=== PATIENT | female | born 1945 | race Caucasian/White ===

== ENCOUNTER → 2017-12-09 12:18 | Outpatient (CLI) | payer MEDICARE, SELFPAY ==
[2017-12-09 12:22] LABS: Bacteria Urine None Seen
[2017-12-09 13:00] LABS: Appearance Urine UA CLOUDY; Bilirubin Urine UA NEGATIVE (NEGATIVE); Color Urine UA RED; Glucose Urine UA NEGATIVE (Negative); Ketones Urine UA NEGATIVE (NEGATIVE); Leukocyte Esterase Urine UA 1+ (NEGATIVE); Nitrite Urine UA NEGATIVE (NEGATIVE); Occult Blood Urine UA 3+ (Negative); Protein Urine UA 2+ (Negative); Urobilinogen Urine UA 0.2 E.U./dL (0.2); pH Urine UA 6.5 (4.5-8.0)
[2017-12-09 13:13] LABS: RBC Urine >100/HPF (0-5/HPF); WBC Urine 5-10/HPF (0-5/HPF)
[2017-12-09 13:14] LABS: Culture Indicated Urine Specimen Cultured
== END ==
PROVIDERS: PCP Internal Medicine; Visit Provider Internal Medicine
DX: R31.9 Hematuria, unspecified (principal)
CPT/HCPCS: 81001; 87086

== ENCOUNTER → 2017-12-23 09:17 | Outpatient (CLI) | payer MEDICARE, SELFPAY ==
--- NOTE | 2017-12-23 | DI.MG.S_ITS ---
BILATERAL DIGITAL SCREENING MAMMOGRAM 3D/2D WITH CAD: 12/23/2017 CLINICAL: Routine screening. Comparison is made to exams dated: 07/08/2015 mammogram, 06/20/2012 mammogram, and 10/20/2010 mammogram - [facility]. There are scattered fibroglandular elements in both breasts. Current study was also evaluated with a Computer Aided Detection (CAD) system. No significant masses, calcifications, or other findings are seen in either breast. There has been no significant interval change. IMPRESSION: NEGATIVE There is no mammographic evidence of malignancy. A 1 year screening mammogram is recommended. This exam was interpreted at Station ID: [id number]. NOTE: For mammograms, a report in lay terms will be sent to the patient. Approximately 15% of breast malignancies will not be visualized mammographically. In the management of a palpable breast mass, a negative mammogram must not discourage biopsy of a clinically suspicious lesion. Electronically Signed By: Anjum louis/luc:12/23/2017 11:39:30 letter sent: Normal Exam ACR BI-RADS Category 1: Negative 3341F
== END ==
PROVIDERS: Family Provider Internal Medicine; PCP Internal Medicine; Visit Provider Internal Medicine
DX: Z12.31 Encounter for screening mammogram for malignant neoplasm of breast (principal)
CPT/HCPCS: 77063; 77067

== ENCOUNTER → 2018-01-15 10:04 | Outpatient (CLI) | payer MEDICARE, SELFPAY | PROVIDERS: Family Provider Internal Medicine; PCP Internal Medicine; Visit Provider Family Medicine | DX: R31.9 Hematuria, unspecified (principal) | CPT/HCPCS: 87086 ==

== ENCOUNTER → 2018-01-15 10:25 | Outpatient (CLI) | payer MEDICARE, SELFPAY ==
[2018-01-15 10:30] LABS: Bacteria Urine None Seen; WBC Urine None Seen (0-5/HPF)
[2018-01-15 10:55] LABS: Appearance Urine UA CLEAR; Bilirubin Urine UA NEGATIVE (NEGATIVE); Color Urine UA YELLOW; Glucose Urine UA NEGATIVE (Normal); Ketones Urine UA NEGATIVE (NEGATIVE); Leukocyte Esterase Urine UA NEGATIVE (NEGATIVE); Nitrite Urine UA Negative (Negative); Occult Blood Urine UA 1+ (Negative); Protein Urine UA NEGATIVE (Negative); Urobilinogen Urine UA 0.2 E.U./dL (0.2); pH Urine UA 7.5 (4.5-8.0)
[2018-01-15 11:04] LABS: Culture Indicated Urine Cult Not Indicated; RBC Urine 1-5/HPF (0-5/HPF)
== END ==
PROVIDERS: Family Provider Internal Medicine; PCP Internal Medicine; Visit Provider Family Medicine
DX: R31.9 Hematuria, unspecified (principal)
CPT/HCPCS: 81001; 87086

== ENCOUNTER → 2018-02-03 11:27 | Outpatient (CLI) | payer MEDICARE, SELFPAY ==
[2018-02-03 12:55] LABS: BUN Creatinine Ratio 23.3 (6-22); Blood Urea Nitrogen 21 mg/dL (7-17); Estimated Glomerular Filt Rate > 60.0 mL/min (>60)
[2018-02-03 19:40] LABS: Hepatitis B Surface Antigen NEGATIVE s/c (NEGATIVE)
[2018-02-03 19:54] LABS: Hep C Virus Ab w/Reflex Quant NEGATIVE s/c (NEGATIVE)
== END ==
PROVIDERS: Family Provider Internal Medicine; PCP Internal Medicine; Visit Provider Physician Assistant
DX: R94.5 Abnormal results of liver function studies (principal); R31.0 Gross hematuria
CPT/HCPCS: 36415; 82565; 84520; 86803; 87340

== ENCOUNTER → 2018-02-07 13:36 | Outpatient (CLI) | payer MEDICARE, SELFPAY ==
--- NOTE | 2018-02-07 | DI.CT.S_ITS ---
PROCEDURE: CT ABDOMEN PELVIS WO/W CON INDICATIONS: GROSS HEMATURIA TECHNIQUE: Optional 5 mm thick noncontrast images acquired from the diaphragm to the symphysis pubis. After the administration of intravenous contrast, 5 mm thick images acquired from the diaphragm to the symphysis pubis after a 10-minute delay. 2 mm thick coronal and sagittal reformats were then performed of the kidneys and ureters. For radiation dose reduction, the following was used: automated exposure control, adjustment of mA and/or kV according to patient size. COMPARISON: [facility], CT, ABDOMEN/PELVIS WITH CONTRAST, 08/11/2013, 14:11. FINDINGS: Image quality: Excellent. Lung bases: Lung bases are clear. Heart size is normal. Urinary system: There are two smooth walled mural-based filling defects in the left renal pelvis (se 3 im 63 and 61). There is smooth walled narrowing in the proximal right renal collecting system (se 5 im 74-75). Remaining proximal ureters in the mid ureters are patent. The distal ureters do not opacify and cannot be evaluated. There are no solid renal masses. There is a punctate right renal parenchymal calcification. Grossly the bladder is normal although CT urogram cannot exclude bladder malignancy or abnormality. Other solid organs: Liver is normal in size and enhancement. Gallbladder is radiographically normal. Biliary system is non dilated. Pancreas enhances normally. Spleen is normal in size and enhancement. No adrenal nodules. Peritoneum and bowel: Bowel loops demonstrate normal wall thickness and caliber. No free fluid or air. Nodes and vessels: No retroperitoneal or mesenteric adenopathy by size criteria. Aorta and inferior vena cava are normal in size. Abdominal wall: No ventral hernias. Pelvis: No pathologic free pelvic fluid. No inguinal hernias or adenopathy. Uterus is present. Bones: No suspicious bony lesions. No vertebral body compression fractures. IMPRESSION: There are two mural based smooth filling defects in the left renal collecting system and smooth margined narrowing in the proximal right ureter all which are indeterminate. The mid ureters are patent. The distal ureters do not opacify and cannot be evaluated. Dictated by: Anjum Garza M.D. on 02/07/2018 at 15:05 Approved by: Anjum Garza M.D. on 02/07/2018 at 15:13
== END ==
PROVIDERS: Family Provider Internal Medicine; PCP Internal Medicine; Visit Provider Physician Assistant
DX: R31.0 Gross hematuria (principal)
CPT/HCPCS: 74178; Q9967

== ENCOUNTER → 2018-08-11 14:02 | Outpatient (CLI) | payer MEDICARE, SELFPAY | PROVIDERS: Family Provider Internal Medicine; PCP Internal Medicine; Visit Provider Internal Medicine | DX: Z79.01 Long term (current) use of anticoagulants (principal) | CPT/HCPCS: 36415; 85610 ==

== ENCOUNTER 2018-11-10 14:00 | Day surgery (SDC) | payer MEDICARE, SELFPAY ==
[2018-11-10] VITALS (7 sets, daily range): BP systolic 115–152; BP diastolic 74–92; PULSE 57–91; RESP 14–18; TEMP 36.8–36.9; O2SAT 96–98
--- NOTE | 2018-11-10 | PATH_ITS ---
[facility] Accession Number: [id number] . 01 Material submitted: . rectum - RECTAL POLYP . 02 Diagnosis: Biopsy, Rectal Polyp: Tubular adenoma involving all biopsy fragments. MRV/11/14/2018 . 02 Electronically signed: . Gabriel Wiggins MD, Pathologist NPI- [id number] . 01 Gross description: . RECTAL POLYP: Received in formalin are multiple fragment(s) of clements, soft tissue measuring 0.6 x 0.4 x 0.2 cm in aggregate submitted entirely in 1 cassette(s) /CKI /CKI . 02 Pathologist provided ICD-10: D12.8 . 02 CPT . 508005 Performed at: 01 [facility] [address] [id number] MD Apolinar Jean Baptiste MD Phone: [phone] Performed at: 02 [facility] [address] [place], [place] [id number] MD Eliana Norris MD Phone: [phone]
[2018-11-10] MEDS: SODIUM CHLORIDE 0.9% 1,000 ML 100 ML IV (14:34)
--- NOTE | 2018-11-10 14:48 | PM.PREOP ---
Pre-operative Note Interval Note History & Physical reviewed/Exam performed by Physician: Yes Changes to H&P: No H&P completed within 30 days and has changed as indicated here:: Pt took the Pradaxa an extra day so is at higher bleeding risk, we discussed options of holding off versus being cautious and accepting a higher bleeding risk which she chose. We may defer biopsies of non-urgent looking polyps or abort early if running into trouble.
[2018-11-10] MEDS: MIDAZOLAM 5 MG/5 ML VIAL IV (15:05)
[2018-11-10] MEDS: fentaNYL 250 MCG/5 ML INJ IV (15:05)
--- NOTE | 2018-11-11 09:21 | P.OP.ENDO_ITS ---
Operative Date/Time/Diagnoses Date of procedure: 11/10/18 Time of procedure: 15:46 Pre-op diagnosis: History of polyps Post-op diagnosis: same Procedure & Clinicians Study performed: Surveillance Colonoscopy Same procedure as scheduled: Yes (with biopsy) Indications: History of polyps Surgeon: Dior Bangura Procedure Notes SCOAP/Timeout: 14:52 Procedure in detail: After obtaining informed consent, the patient was brought to the GI suite and placed in the left lateral decubitus position on the examination table. After placement of appropriate monitors, the patient was given incremental doses of Versed and Fentanyl until an appropriate level of sedation was achieved. A time out was held per SCOAP protocol. A digital rectal examination was performed and did not reveal any masses or obstructing lesions. The colonoscope was gently passed into the patient's anus and the entire colon navigated to the level of the cecum with moderate difficulty due to spasm and tortuous sigmoid with moderate to severe diverti culosis. Prep was adequate. Once in the cecum, the scope was slowly withdrawn being sure to go before and beyond all mucosal folds and prominences as able to get a thorough examination. A <1cm rectal polyp (around 15cm from anal verge) was removed with a hot snare. Other findings include diverticulosis. At the level of the rectal vault, the scope was retroflexed and the internal anal canal was examined. The scope was straightened and air aspirated from the colon. The instrument was removed from the patient's body and the procedure was concluded. The patient was allowed to awaken from sedation without difficulty and taken to the post-anesthesia care unit in good condition. Scope withdrawal time: 21 min Sedation minutes: 48 Findings: diverticulosis and polyp (rectal polyp, <1cm) Specimen(s): none sent (rectal polyp) Complications: none Impression: 1. Diverticulosis- moderate to severe 2. Rectal polyp Recommendations: Colonscopy in 5 years (pending pathology) and High fiber diet Follow up: as needed Disposition: PACU
== END 2018-11-10 16:48 | disposition home or self-care (01) ==
PROVIDERS: PCP Internal Medicine; Visit Provider Surgery
PROC: 0DJD8ZZ Inspection of Lower Intestinal Tract, Via Natural or Artificial Opening Endoscopic (ICD-10-PCS; CPT 45378; principal; 2018-11-10 15:00)
DX: Z86.010 Personal history of colon polyps (principal); Z79.01 Long term (current) use of anticoagulants; I10 Essential (primary) hypertension; Z86.711 Personal history of pulmonary embolism; I87.2 Venous insufficiency (chronic) (peripheral); Z87.891 Personal history of nicotine dependence; D12.8 Benign neoplasm of rectum; K57.30 Diverticulosis of large intestine without perforation or abscess without bleeding
CPT/HCPCS: 45385; 88305; 99152; 99153; J2250; J3010

== ENCOUNTER → 2018-11-14 09:42 | Outpatient (CLI) | payer MEDICARE, SELFPAY ==
[2018-11-14 10:12] LABS: Add Manual Diff / Slide Review NO; Basophils Absolute Auto 0 /uL (0-100); Basophils Percent Auto 0.9 % (0-2); Eosinophils Absolute Auto 100 /uL (0-450); Eosinophils Percent Auto 1.5 % (2-4); Hematocrit 41.2 % (36-46); Hemoglobin 13.9 g/dL (12.0-16.0); Lymphocytes Absolute Auto 800 /uL (1100-4500); Lymphocytes Percent Auto 20.7 % (25-40); Mean Corpuscular HGB Conc 33.6 % (30-36); Mean Corpuscular Hemoglobin 32.2 PG (26-34); Mean Corpuscular Volume 95.7 fL (80-100); Monocytes Absolute Auto 500 /uL (0-900); Monocytes Percent Auto 13.3 % (3-14); Neutrophils Absolute Auto 2400 /uL (1500-7000); Neutrophils Percent Auto 63.6 % (50-75); Platelet Count 213 X10^3/uL (150-400); Red Cell Distribution Width 13.4 % (11.6-14.8); White Blood Cell Count 3.7 X10^3/uL (4.5-11.0)
[2018-11-14 10:17] LABS: INR 1.9 (0.9-1.3); Prothrombin Time 22.1 SECONDS (10.1-12.7)
[2018-11-14 15:48] LABS: Alanine Aminotransferase 40 IU/L (9-52); Albumin 4.5 g/dL (3.5-5.0); Albumin Globulin Ratio 1.4 (1.0-2.8); Alkaline Phosphatase 69 U/L (38-126); Aspartate Aminotransferase 57 IU/L (14-36); Bilirubin Total 0.2 mg/dL (0.2-1.3); Bilirubin Unconjugated 0.2 mg/dL (0.0-1.1); Blood Urea Nitrogen 20 mg/dL (7-17); Calcium 9.4 mg/dL (8.4-10.2); Carbon Dioxide 25 mmol/L (22-32); Chloride 104 mmol/L (98-107); Cholesterol 193 mg/dL (140-199); Estimated Glomerular Filt Rate > 60.0 mL/min (>60); Globulin 3.2 g/dL (1.7-4.1); Glucose 115 mg/dL (80-110); HDL Cholesterol 71 mg/dL (40-60); HEMOLYSIS < 15 (0-50); LDL Cholesterol Calculated 106 mg/dL (<100); Potassium 5.1 mmol/L (3.4-5.1); Sodium 139 mmol/L (137-145); Total Protein 7.7 g/dL (6.3-8.2); Triglycerides 79 mg/dL (35-150)
== END ==
PROVIDERS: PCP Internal Medicine; Visit Provider Internal Medicine
DX: D68.59 Other primary thrombophilia (principal); E78.2 Mixed hyperlipidemia; I10 Essential (primary) hypertension; Z79.01 Long term (current) use of anticoagulants
CPT/HCPCS: 36415; 80053; 80061; 80076; 85025; 85610

== ENCOUNTER → 2018-12-17 10:55 | Outpatient (CLI) | payer MEDICARE, SELFPAY ==
[2018-12-17 11:45] LABS: Bilirubin Urine UA NEGATIVE (NEGATIVE); Color Urine UA Red; Glucose Urine UA NEGATIVE (Negative); Ketones Urine UA NEGATIVE (NEGATIVE); Leukocyte Esterase Urine UA 2+ (NEGATIVE); Nitrite Urine UA POSITIVE (Negative); Occult Blood Urine UA 3+ (Negative); Protein Urine UA 3+ (Negative); Urobilinogen Urine UA 0.2 E.U./dL (0.2)
[2018-12-17 11:46] LABS: Appearance Urine UA Turbid
[2018-12-17 12:17] LABS: Bacteria Urine Moderate (10-30); RBC Urine 30-100/HPF (0-5/HPF); WBC Urine 10-30/HPF (0-5/HPF)
[2018-12-17 12:18] LABS: Culture Indicated Urine Specimen Cultured
== END ==
PROVIDERS: Family Provider Internal Medicine; PCP Internal Medicine; Visit Provider Family Medicine
DX: R31.9 Hematuria, unspecified (principal)
CPT/HCPCS: 81001; 87077; 87086; 87186

== ENCOUNTER → 2019-08-08 10:32 | Outpatient (CLI) | payer MEDICARE, SELFPAY ==
[2019-08-08 12:02] LABS: Appearance Urine UA SL CLOUDY; Bilirubin Urine UA NEGATIVE (NEGATIVE); Color Urine UA RED; Glucose Urine UA NEGATIVE (Negative); Ketones Urine UA NEGATIVE (NEGATIVE); Leukocyte Esterase Urine UA 1+ (NEGATIVE); Nitrite Urine UA NEGATIVE (Negative); Occult Blood Urine UA 3+ (Negative); Protein Urine UA 1+ (Negative); Urobilinogen Urine UA 0.2 E.U./dL (0.2)
[2019-08-08 12:05] LABS: pH Urine UA 8.5 (4.5-8.0)
[2019-08-08 12:12] LABS: Bacteria Urine Few (2-10); Culture Indicated Urine Specimen Cultured; RBC Urine >100/HPF (0-5/HPF); WBC Urine 1-5/HPF (0-5/HPF)
== END ==
PROVIDERS: PCP Internal Medicine; Visit Provider Internal Medicine
DX: R39.89 Other symptoms and signs involving the genitourinary system (principal)
CPT/HCPCS: 81001; 87077; 87086; 87186

== ENCOUNTER → 2019-08-11 09:56 | Outpatient (CLI) | payer MEDICARE, SELFPAY ==
[2019-08-11 10:33] LABS: Add Manual Diff / Slide Review NO; Basophils Absolute Auto 0 /uL (0-100); Basophils Percent Auto 0.5 % (0-2); Eosinophils Absolute Auto 300 /uL (0-450); Eosinophils Percent Auto 3.6 % (2-4); Hematocrit 38.2 % (36-46); Lymphocytes Absolute Auto 600 /uL (1100-4500); Lymphocytes Percent Auto 8.1 % (25-40); Mean Corpuscular HGB Conc 33.9 % (30-36); Mean Corpuscular Hemoglobin 32.3 PG (26-34); Mean Corpuscular Volume 95.2 fL (80-100); Monocytes Absolute Auto 900 /uL (0-900); Neutrophils Absolute Auto 5400 /uL (1500-7000); Neutrophils Percent Auto 75.8 % (50-75); Platelet Count 203 X10^3/uL (150-400); Red Blood Cell Count 4.01 X10^6/uL (4.0-5.2); Red Cell Distribution Width 13.3 % (11.6-14.8); White Blood Cell Count 7.2 X10^3/uL (4.5-11.0)
[2019-08-11 10:55] LABS: Alanine Aminotransferase 28 IU/L (<35); Albumin 4.2 g/dL (3.5-5.0); Albumin Globulin Ratio 1.2 (1.0-2.8); Alkaline Phosphatase 71 U/L (38-126); Aspartate Aminotransferase 33 IU/L (14-36); BUN Creatinine Ratio 25.7 (6-22); Bilirubin Total 0.8 mg/dL (0.2-1.3); Blood Urea Nitrogen 18 mg/dL (7-17); Calcium 9.5 mg/dL (8.4-10.2); Carbon Dioxide 28 mmol/L (22-32); Chloride 105 mmol/L (98-107); Cholesterol 175 mg/dL (140-199); Estimated Glomerular Filt Rate > 60.0 mL/min (>60); Globulin 3.5 g/dL (1.7-4.1); Glucose 109 mg/dL (80-110); HDL Cholesterol 49 mg/dL (40-60); HEMOLYSIS < 15 (0-50); LDL Cholesterol Calculated 106 mg/dL (<100); Magnesium 2.1 mg/dL (1.6-2.3); Sodium 141 mmol/L (137-145); Total Protein 7.7 g/dL (6.3-8.2); Triglycerides 99 mg/dL (35-150)
== END ==
PROVIDERS: PCP Internal Medicine; Visit Provider Internal Medicine
DX: E78.2 Mixed hyperlipidemia (principal); I10 Essential (primary) hypertension; R94.5 Abnormal results of liver function studies; Z79.01 Long term (current) use of anticoagulants
CPT/HCPCS: 36415; 80053; 80061; 83735; 85025

== ENCOUNTER → 2020-05-24 11:27 | Outpatient (CLI) | payer MEDICARE, SELFPAY ==
--- NOTE | 2020-05-24 11:29 | DI.MG.S_ITS ---
BILATERAL DIGITAL SCREENING MAMMOGRAM 3D/2D WITH CAD: 05/24/2020 CLINICAL: Routine screening. Comparison is made to exams dated: 12/23/2017 mammogram, 07/08/2015 mammogram, and 06/20/2012 mammogram - [facility]. The tissue of both breasts is heterogeneously dense. This may lower the sensitivity of mammography. Current study was also evaluated with a Computer Aided Detection (CAD) system. No significant masses, calcifications, or other findings are seen in either breast. There has been no significant interval change. IMPRESSION: NEGATIVE There is no mammographic evidence of malignancy. A 1 year screening mammogram is recommended. This exam was interpreted at Station ID: [id number]. NOTE: For mammograms, a report in lay terms will be sent to the patient. Approximately 15% of breast malignancies will not be visualized mammographically. In the management of a palpable breast mass, a negative mammogram must not discourage biopsy of a clinically suspicious lesion. Electronically Signed By: Apolinar zambrano/luc:05/24/2020 16:46:39 letter sent: Normal Exam ACR BI-RADS Category 1: Negative 3341F
== END ==
PROVIDERS: PCP Internal Medicine; Referring Provider Internal Medicine; Visit Provider Internal Medicine
DX: Z12.31 Encounter for screening mammogram for malignant neoplasm of breast (principal)
CPT/HCPCS: 77063; 77067

== ENCOUNTER → 2020-06-04 11:35 | Outpatient (CLI) | payer MEDICARE, SELFPAY ==
[2020-06-04 12:23] LABS: Add Manual Diff / Slide Review NO; Basophils Absolute Auto 0 /uL (0-100); Basophils Percent Auto 0.3 % (0-2); Eosinophils Absolute Auto 100 /uL (0-450); Eosinophils Percent Auto 1.2 % (2-4); Hematocrit 44.4 % (36-46); Hemoglobin 14.5 g/dL (12.0-16.0); Lymphocytes Absolute Auto 1000 /uL (1100-4500); Lymphocytes Percent Auto 19.4 % (25-40); Mean Corpuscular HGB Conc 32.6 % (30-36); Mean Corpuscular Hemoglobin 31.6 PG (26-34); Monocytes Absolute Auto 500 /uL (0-900); Monocytes Percent Auto 10.6 % (3-14); Neutrophils Absolute Auto 3400 /uL (1500-7000); Neutrophils Percent Auto 68.5 % (50-75); Platelet Count 228 X10^3/uL (150-400); Red Blood Cell Count 4.58 X10^6/uL (4.0-5.2); Red Cell Distribution Width 13.5 % (11.6-14.8); White Blood Cell Count 4.9 X10^3/uL (4.5-11.0)
[2020-06-04 13:01] LABS: HEMOLYSIS < 15 (0-50); Potassium 4.8 mmol/L (3.4-5.1)
[2020-06-04 13:02] LABS: Alanine Aminotransferase 31 IU/L (<35); Albumin 4.4 g/dL (3.5-5.0); Albumin Globulin Ratio 1.2 (1.0-2.8); Alkaline Phosphatase 80 U/L (38-126); Amylase 89 U/L (30-110); Aspartate Aminotransferase 48 IU/L (14-36); BUN Creatinine Ratio 23.9 (6-22); Bilirubin Total 0.4 mg/dL (0.2-1.3); Blood Urea Nitrogen 17 mg/dL (7-17); Calcium 9.6 mg/dL (8.4-10.2); Carbon Dioxide 29 mmol/L (22-32); Chloride 104 mmol/L (98-107); Estimated Glomerular Filt Rate > 60.0 mL/min (>60); Globulin 3.8 g/dL (1.7-4.1); Glucose 105 mg/dL (80-110); Lipase 147 U/L (23-300); Sodium 138 mmol/L (137-145); Total Protein 8.2 g/dL (6.3-8.2)
== END ==
PROVIDERS: PCP Internal Medicine; Referring Provider Internal Medicine; Visit Provider Internal Medicine
DX: R10.9 Unspecified abdominal pain (principal)
CPT/HCPCS: 36415; 80053; 82150; 83690; 85025

== ENCOUNTER → 2020-06-06 12:07 | Outpatient (CLI) | payer MEDICARE, SELFPAY ==
--- NOTE | 2020-06-06 12:10 | DI.US.S_ITS ---
PROCEDURE: US ABDOMEN COMPLETE INDICATIONS: EPIGASTRIC PAIN, PRESSURE TECHNIQUE: Real-time scanning was performed of the abdominal and retroperitoneal organs, with image documentation. COMPARISON: [facility], CT, CT ABDOMEN PELVIS WO/W CON, 02/07/2018, 13:40. FINDINGS: Liver: Liver is normal in size and homogeneous in echotexture. The main portal vein is patent and measures 1.5 cm. Gallbladder: No findings of gallstones or sludge are seen. The gallbladder wall is not thickened, measuring 3 mm or less. No specific pericholecystic fluid is seen. The sonographic Molina sign is negative. Biliary ducts: Intrahepatic bile ducts are non-dilated. Extrahepatic bile duct caliber measures 6-7 mm. Normal is 6-7 mm or less in diameter, or 10 mm or less post-cholecystectomy. Pancreas: Visualized portions of the pancreas are sonographically normal. Spleen: Spleen is normal in size and homogeneous in echotexture. Kidneys: Kidneys are normal in size and echotexture. Right kidney measures 9.7 cm long; left kidney measures 10.9 cm long. No hydronephrosis or nephrolithiasis. No solid masses. Aorta: Visualized aorta is normal in caliber at less than 3 cm. Iliacs: Proximal common iliac arteries are normal in caliber at less than 2.5 cm. IVC: Intrahepatic inferior vena cava is patent. Miscellaneous: No free abdominal fluid. IMPRESSION: Normal ultrasound. The gallbladder demonstrates a normal sonographic appearance. No biliary dilatation is seen. Dictated by: Alen Templeton M.D. on 06/06/2020 at 12:20 Approved by: Alen Templeton M.D. on 06/06/2020 at 12:38
== END ==
PROVIDERS: PCP Internal Medicine; Referring Provider Internal Medicine; Visit Provider Internal Medicine
DX: R10.13 Epigastric pain (principal)
CPT/HCPCS: 76700

== ENCOUNTER → 2020-09-16 10:21 | Outpatient (CLI) | payer MEDICARE, SELFPAY ==
[2020-09-16 13:49] LABS: COVID19 -Nasal RAPID Negative (Negative)
== END ==
PROVIDERS: PCP Internal Medicine; Visit Provider Nurse Practitioner
DX: Z01.812 Encounter for preprocedural laboratory examination (principal); Z20.822 Contact with and (suspected) exposure to COVID-19
CPT/HCPCS: 87635; C9803

== ENCOUNTER 2020-09-18 12:27 | Day surgery (SDC) | payer MEDICARE, SELFPAY ==
[2020-09-18] VITALS (7 sets, daily range): BP systolic 115–145; BP diastolic 69–78; PULSE 59–68; RESP 12–18; TEMP 36.2–36.8; O2SAT 92–97; BMI 21.1
--- NOTE | 2020-09-18 | PATH_ITS ---
[facility] Accession Number: [id number] . 01 Material submitted: . PART A: gastrointestinal site - GASTRIC BIOPSY, BODY, ANTRUM PART B: gastrointestinal site - GASTRIC POLYP . 01 Clinical history: . EGD A: R/O H.PYLORI . 02 Diagnosis: A. Stomach, Biopsies: Gastric antral and body mucosa with mild chronic inflammation. Negative for Helicobacter organisms by immunohistochemistry. Negative for intestinal metaplasia. Negative for dysplasia or malignancy. . B. Gastric Polyp, Biopsy: Fundic gland polyp. No evidence of Helicobacter organisms on H/E stain. Negative for intestinal metaplasia. Negative for dysplasia and malignancy. V 09/24/2020 1320 Local . 02 Electronically signed: . Doyle Tesfaye MD, PhD, Pathologist NPI- [id number] . 01 Gross description: . Part A: GASTRIC BIOPSY, BODY, ANTRUM: Received in formalin are multiple fragment(s) of clements, soft tissue measuring 0.1 x 0.1 x 0.1 cm to 0.3 x 0.2 x 0.2 cm submitted entirely in 1 cassette(s) Part B: GASTRIC POLYP: Received in formalin is 1 fragment(s) of clements, soft tissue measuring 0.3 x 0.2 x 0.2 cm submitted entirely in 1 cassette(s) /CORBIN 09/21/2020 0125 Local . 02 Microscopic: . A. An immunohistochemical stain was performed to evaluate for Helicobacter organisms and is negative. The control stain showed appropriate reactivity. . * This test was developed and its performance characteristics determined by [facility]. It has not been cleared or approved by the U.S. Food and Drug Administration. The FDA has determined that such clearance or approval is not necessary. This test is used for clinical purposes. It should not be regarded as investigational or for research. . 02 Pathologist provided ICD-10: K29.70, K31.7 . 02 CPT . 414895, 075558, R06414 Performed at: 01 [facility] [address] [id number] MD Apolinar Jean Baptiste MD Phone: [phone] Performed at: [address] [place] [id number] [place], [place] [id number] MD Eliana Norris MD Phone: [phone]
--- NOTE | 2020-09-18 08:15 | PM.HP.1 ---
History of Present Illness History of Present Illness Date Patient Seen: 09/18/20 Chief complaint: EGD Narrative: 75-year-old female seen at our office on 08/15 2020 for epigastric pain and heartburn. 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 (12/07/12) Mixed hyperlipidemia Osteopenia (01/23/16) Pulmonary embolism Surgical History History of ERCP (2003) History of exploratory laparotomy (2003) Status post breast biopsy (09/14/95) Status post colonoscopy (09/18/13) Status post endoscopy (09/18/13) Family & Social History Family History Brother Type II diabetes mellitus Sister Type II diabetes mellitus Unknown COPD (chronic obstructive pulmonary disease) Mother Hypertension Social History: household members spouse Tobacco & Substance use: Smoking Status Former smoker alcohol intake current Meds Home Medications and Allergies Home Medications Medication Instructions Recorded Confirmed Type Fish Oil (#OMEGA 3) 1,000 mg PO Q DAY #0 11/26/11 09/18/20 History CA PANTOTHENATE/FOLIC ACID/VIT 1 tab PO QDAY #0 03/09/13 09/18/20 History (MULTIVITAMIN) coenzyme Q10 100 mg capsule 100 mg PO DAILY 09/06/18 09/18/20 History Glucosamine Chondroitin 3 tab PO DAILY 08/17/19 09/18/20 History apple cider vinegar 500 mg tablet See Rx Instructions PO DAILY tab 08/17/19 09/18/20 History biotin 5 mg capsule 5 mg PO DAILY 08/17/19 09/18/20 History simvastatin 40 mg tablet See Rx Instructions .ROUTE 10/09/19 09/18/20 Rx .COMPLEX #90 tablet mupirocin 2 % topical ointment 1 applictn TOP BID #15 gram 03/26/20 09/18/20 Rx lisinopril 40 mg tablet 40 mg PO DAILY #90 tab 02/02/21 03/03/21 Rx warfarin 5 mg tablet 5 mg PO DAILY #90 tab 09/02/20 09/18/20 Rx enoxaparin [Lovenox] 60 mg SUBCUT BID 09/18/20 09/18/20 History omeprazole 40 mg PO BEDTIME 09/18/20 09/18/20 History warfarin 4 mg PO QDAY 09/18/20 09/18/20 History Allergies Allergy/AdvReac Type Severity Reaction Status Date / Time hydrocodone [HYDROCODONE] AdvReac Mild NAUSEA Verified 09/18/20 13:00 oxycodone [OXYCODONE] AdvReac Mild NAUSEA Verified 09/18/20 12:59 Exam Narrative Exam Narrative: General: Patient is well developed, not in apparent distress Cardiovascular: Regular rate and rhythm, no murmurs, rubs, or gallops; no evidence of edema; no palpable abdominal aortic aneurysm Gastrointestinal: Normoactive bowel sounds, soft, nontender, nondistended, no rebound tenderness, no hepatosplenomegaly, no evidence of hernia Assessment & Plan Assessment & Plan narrative: 75-year-old female with a history of epigastric pain and heartburn here for further evaluation by means of EGD. Warfarin held for the procedure Regarding the procedure(s), the risks and potential complications, benefits, and alternatives (including not doing the procedure) were discussed with the patient. The risks include but are not limited to bleeding, splenic injury, infection, perforation which may require surgical intervention, missed lesions, and adverse reactions to sedative medicines. After a question and answer period, the patient agreed to proceed with the procedure(s) and gives informed consent.
[2020-09-18] MEDS: SODIUM CHLORIDE 0.9% 1,000 ML 70 ML IV (13:23)
--- NOTE | 2020-09-18 13:27 | PM.OP.ENDO ---
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 The procedure was discussed in detail with the patient. The potential risks and complications including infection, bleeding, missed lesions, perforation, need for surgery in case of perforation, prolonged hospital stay, and were explained. A brief question and answer period was allotted and once all questions were answered, informed consent was obtained. The patient was brought back to the procedure room and placed on standard monitoring. The patient?s vital signs were monitored continuously throughout the entire procedure. Prior to starting, a timeout was performed to confirm the patient?s identity, allergies, medications, and procedure. Procedure in detail The patient was placed in left lateral decubitus position and a bite block was inserted. The tip of the upper endoscope was placed into the mouth and advanced without difficulty under direct visualization into the esophagus. Esophagus: The entire esophagus appeared normal Stomach: There was note of a 2 cm hiatal hernia on retroflexion in the stomach. There were multiple sessile and pedunculated polyps in the gastric body measuring 2 mm up to 8 mm. 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 Biopsy was also performed in the body and antrum to rule out H pylori Duodenum: The visualized duodenum up to the 2nd portion of the duodenum appeared normal The patient tolerated the procedure well and will be brought back to the recovery area to be discharged once criteria are met. The total physician intraservice time was 12 minutes. Complications There were no complications and estimated blood loss was minimal. Recommendations: Resume previous diet Continue outPx medications Resume warfarin later today; continue Lovenox bridge as previously ordered Follow up pathology results We will schedule you for a follow-up with Dr. Lubin ([facility]) An emergency contact number was given to the patient for any complications related to the procedure
[2020-09-18] MEDS: fentaNYL 100 MCG/2 ML INJ IV (13:33)
[2020-09-18] MEDS: MIDAZOLAM 5 MG/5 ML VIAL IV (13:33)
[2020-09-18] MEDS: LIDOCAINE 4% SOLN 50 ML 20 ML TOP (13:34)
[2020-09-18] MEDS: MIDAZOLAM 2 MG/2 ML VIAL IV (13:47)
--- NOTE | 2020-09-18 14:43 | SUR.PHASEII ---
1415 Pt ready to go, called, available for pepper picker. Pt denied pain, vinnie soft strong swallow and voice. Pt left when ready and left in stable condition.
--- NOTE | 2020-09-18 14:46 | SUR.PHASEII ---
Late entry: Dr. Crooks's lovenox/Coumadin d/c instructions provided to pt with d/c instructions.
== END 2020-09-18 14:35 | disposition home or self-care (01) ==
PROVIDERS: PCP Internal Medicine; Referring Provider Internal Medicine Gastroenterology; Visit Provider Internal Medicine Gastroenterology
PROC: 0DJ08ZZ Inspection of Upper Intestinal Tract, Via Natural or Artificial Opening Endoscopic (ICD-10-PCS; CPT 43235; principal; 2020-09-18 13:30)
DX: K29.50 Unspecified chronic gastritis without bleeding (principal); I10 Essential (primary) hypertension; E78.5 Hyperlipidemia, unspecified; Z79.01 Long term (current) use of anticoagulants; Z86.718 Personal history of other venous thrombosis and embolism; K44.9 Diaphragmatic hernia without obstruction or gangrene; K31.7 Polyp of stomach and duodenum
CPT/HCPCS: 43239; J2250; J3010

== ENCOUNTER → 2020-09-30 09:52 | Outpatient (CLI) | payer MEDICARE, SELFPAY ==
[2020-09-30 10:22] LABS: Add Manual Diff / Slide Review NO; Basophils Absolute Auto 0 /uL (0-100); Basophils Percent Auto 0.8 % (0-2); Eosinophils Absolute Auto 100 /uL (0-450); Eosinophils Percent Auto 1.5 % (2-4); Hematocrit 41.6 % (36-46); Hemoglobin 13.9 g/dL (12.0-16.0); Lymphocytes Absolute Auto 700 /uL (1100-4500); Lymphocytes Percent Auto 17.6 % (25-40); Mean Corpuscular HGB Conc 33.3 % (30-36); Mean Corpuscular Hemoglobin 32.4 PG (26-34); Mean Corpuscular Volume 97.2 fL (80-100); Monocytes Absolute Auto 500 /uL (0-900); Monocytes Percent Auto 11.6 % (3-14); Neutrophils Absolute Auto 2900 /uL (1500-7000); Neutrophils Percent Auto 68.5 % (50-75); Platelet Count 235 X10^3/uL (150-400); Red Blood Cell Count 4.28 X10^6/uL (4.0-5.2); Red Cell Distribution Width 13.6 % (11.6-14.8); White Blood Cell Count 4.2 X10^3/uL (4.5-11.0)
[2020-09-30 10:54] LABS: Alanine Aminotransferase 74 IU/L (<35); Albumin 4.3 g/dL (3.5-5.0); Albumin Globulin Ratio 1.3 (1.0-2.8); Alkaline Phosphatase 87 U/L (38-126); Aspartate Aminotransferase 46 IU/L (14-36); BUN Creatinine Ratio 26.7 (6-22); Bilirubin Total 0.4 mg/dL (0.2-1.3); Blood Urea Nitrogen 20 mg/dL (7-17); Calcium 9.4 mg/dL (8.4-10.2); Carbon Dioxide 28 mmol/L (22-32); Chloride 103 mmol/L (98-107); Cholesterol 220 mg/dL (140-199); Estimated Glomerular Filt Rate > 60.0 mL/min (>60); Globulin 3.4 g/dL (1.7-4.1); Glucose 125 mg/dL (80-110); HDL Cholesterol 72 mg/dL (40-60); HEMOLYSIS < 15 (0-50); LDL Cholesterol Calculated 133 mg/dL (<100); Potassium 4.3 mmol/L (3.4-5.1); Sodium 138 mmol/L (137-145); Total Protein 7.7 g/dL (6.3-8.2); Triglycerides 73 mg/dL (35-150)
== END ==
PROVIDERS: PCP Internal Medicine; Referring Provider Internal Medicine; Visit Provider Internal Medicine
DX: E78.2 Mixed hyperlipidemia (principal); I10 Essential (primary) hypertension; R94.5 Abnormal results of liver function studies; Z79.01 Long term (current) use of anticoagulants
CPT/HCPCS: 36415; 80053; 80061; 85025

== ENCOUNTER → 2020-10-14 10:00 | Outpatient (CLI) | payer MEDICARE, SELFPAY ==
--- NOTE | 2020-10-14 10:20 | DI.CT.S_ITS ---
PROCEDURE: CT ABDOMEN PELVIS W CON INDICATIONS: Generalized abdominal pain,Diverticulosis of intes TECHNIQUE: After the administration of oral and intravenous contrast, 5 mm thick sections acquired from the diaphragms to the symphysis. 5 mm thick coronal and sagittal reformats were performed. For radiation dose reduction, the following was used: automated exposure control, adjustment of mA and/or kV according to patient size. COMPARISON: [facility], CT, ABDOMEN/PELVIS WITH CONTRAST, 08/11/2013, 14:11. FINDINGS: Image quality: Excellent. ABDOMEN: Lung bases: Lung bases are clear. Heart size is normal. Solid organs: Liver is normal in size and enhancement. Gallbladder is unremarkable. Biliary system is non-dilated. Pancreas enhances normally. Spleen is normal in size and enhancement. No adrenal nodules. Kidneys are normal in size and enhancement, without hydronephrosis. Peritoneum and bowel: Stomach, small bowel, and colon loops are normal in caliber and wall thickness. No free fluid or air. Sigmoid diverticulosis. Nodes and vessels: No retroperitoneal or mesenteric adenopathy. Aorta and inferior vena cava are normal in caliber. Miscellaneous: No ventral hernias. PELVIS: Genitourinary: Bladder wall thickness is normal. Miscellaneous: No inguinal hernias or adenopathy. Bones: No suspicious bony lesions. No acute vertebral body compression fractures. Scoliotic curvature with convexity to the right centered at L2. IMPRESSION: 1. Diverticulosis without evidence of diverticulitis. 2. No evidence of acute abdominal process. Dictated by: Basilio Ferguson M.D. on 10/14/2020 at 11:23 Approved by: Basilio Ferguson M.D. on 10/14/2020 at 11:49
== END ==
PROVIDERS: PCP Internal Medicine; Referring Provider Internal Medicine; Visit Provider Student in an Organized Health Care Education/Training Program
DX: K57.30 Diverticulosis of large intestine without perforation or abscess without bleeding; R10.84 Generalized abdominal pain
CPT/HCPCS: 74177; Q9967

== ENCOUNTER → 2020-10-17 14:28 | Outpatient (CLI) | payer MEDICARE, SELFPAY ==
[2020-10-17 14:46] LABS: Bacteria Urine None Seen
[2020-10-17 16:18] LABS: Appearance Urine UA CLOUDY; Bilirubin Urine UA NEGATIVE (NEGATIVE); Color Urine UA RED; Glucose Urine UA NEGATIVE (Negative); Ketones Urine UA NEGATIVE (NEGATIVE); Leukocyte Esterase Urine UA TRACE (NEGATIVE); Nitrite Urine UA NEGATIVE (Negative); Occult Blood Urine UA 3+ (Negative); Protein Urine UA 2+ (Negative); Urobilinogen Urine UA 0.2 E.U./dL (0.2); pH Urine UA 5.5 (4.5-8.0)
[2020-10-17 16:19] LABS: Culture Indicated Urine Specimen Cultured; RBC Urine >100/HPF (0-5/HPF); WBC Urine 10-30/HPF (0-5/HPF)
== END ==
PROVIDERS: PCP Internal Medicine; Referring Provider Internal Medicine; Visit Provider Internal Medicine
DX: R31.9 Hematuria, unspecified (principal)
CPT/HCPCS: 81001; 87077; 87086; 87186

== ENCOUNTER → 2020-12-31 10:36 | Outpatient (CLI) | payer MEDICARE, SELFPAY | PROVIDERS: PCP Internal Medicine; Visit Provider Physician Assistant | DX: N34.3 Urethral syndrome, unspecified (principal) | CPT/HCPCS: 87086 ==

== ENCOUNTER → 2020-12-31 11:39 | Outpatient (CLI) | payer MEDICARE, SELFPAY ==
[2020-12-31 11:59] LABS: INR 2.6 (0.9-1.3); Prothrombin Time 29.3 SECONDS (10.1-12.7)
== END ==
PROVIDERS: PCP Internal Medicine; Referring Provider Physician Assistant; Visit Provider Physician Assistant
DX: Z79.01 Long term (current) use of anticoagulants (principal); N34.3 Urethral syndrome, unspecified
CPT/HCPCS: 36415; 85610; 87077; 87086; 87186

== ENCOUNTER → 2021-01-07 10:55 | Outpatient (CLI) | payer MEDICARE, SELFPAY ==
[2021-01-07 12:03] LABS: INR 2.6 (0.9-1.3); Prothrombin Time 29.8 SECONDS (10.1-12.7)
== END ==
PROVIDERS: PCP Internal Medicine; Referring Provider Internal Medicine; Visit Provider Internal Medicine
DX: Z79.01 Long term (current) use of anticoagulants (principal); Z86.711 Personal history of pulmonary embolism
CPT/HCPCS: 36415; 85610

== ENCOUNTER → 2021-02-04 11:29 | Outpatient (CLI) | payer MEDICARE, SELFPAY ==
[2021-02-04 13:20] LABS: INR 2.5 (0.9-1.3); Prothrombin Time 28.8 SECONDS (10.1-12.7)
== END ==
PROVIDERS: PCP Internal Medicine; Referring Provider Internal Medicine; Visit Provider Internal Medicine
DX: Z79.01 Long term (current) use of anticoagulants (principal); Z86.711 Personal history of pulmonary embolism
CPT/HCPCS: 36415; 85610

== ENCOUNTER → 2021-02-16 14:00 | Outpatient (CLI) | payer MEDICARE, SELFPAY | PROVIDERS: PCP Internal Medicine; Visit Provider Student in an Organized Health Care Education/Training Program | DX: R35.0 Frequency of micturition (principal); R39.15 Urgency of urination | CPT/HCPCS: 87086 ==

== ENCOUNTER → 2021-02-19 11:13 | Outpatient (CLI) | payer MEDICARE, SELFPAY ==
[2021-02-19 12:50] LABS: INR 2.9 (0.9-1.3); Prothrombin Time 34.4 SECONDS (10.1-12.7)
== END ==
PROVIDERS: PCP Internal Medicine; Referring Provider Internal Medicine; Visit Provider Internal Medicine
DX: Z79.01 Long term (current) use of anticoagulants (principal)
CPT/HCPCS: 36415; 85610

== ENCOUNTER → 2021-02-25 10:37 | Outpatient (CLI) | payer MEDICARE, SELFPAY ==
[2021-02-25 11:59] LABS: INR 2.6 (0.9-1.3); Prothrombin Time 30.4 SECONDS (10.1-12.7)
== END ==
PROVIDERS: PCP Internal Medicine; Referring Provider Internal Medicine; Visit Provider Internal Medicine
DX: Z79.01 Long term (current) use of anticoagulants (principal)
CPT/HCPCS: 36415; 85610

== ENCOUNTER → 2021-03-04 11:34 | Outpatient (CLI) | payer MEDICARE, SELFPAY | PROVIDERS: PCP Internal Medicine; Visit Provider Physician Assistant | DX: N39.0 Urinary tract infection, site not specified (principal) | CPT/HCPCS: 87077; 87086; 87147; 87186 ==

== ENCOUNTER → 2021-03-13 13:43 | Outpatient (CLI) | payer MEDICARE, SELFPAY ==
[2021-03-13 14:30] LABS: INR 2.3 (0.9-1.3); Prothrombin Time 25.6 SECONDS (10.1-12.7)
== END ==
PROVIDERS: Student in an Organized Health Care Education/Training Program; PCP Internal Medicine; Referring Provider Internal Medicine; Visit Provider Internal Medicine
DX: Z79.01 Long term (current) use of anticoagulants (principal)
CPT/HCPCS: 36415; 85610

== ENCOUNTER → 2021-04-04 11:04 | Outpatient (CLI) | payer MEDICARE, SELFPAY ==
[2021-04-04 13:02] LABS: INR 2.4 (0.9-1.3); Prothrombin Time 27.8 SECONDS (10.1-12.7)
== END ==
PROVIDERS: PCP Internal Medicine; Referring Provider Internal Medicine; Visit Provider Internal Medicine
DX: Z79.01 Long term (current) use of anticoagulants (principal)
CPT/HCPCS: 36415; 85610

== ENCOUNTER → 2021-04-18 10:43 | Outpatient (CLI) | payer MEDICARE, SELFPAY ==
[2021-04-18 12:09] LABS: INR 2.5 (0.9-1.3); Prothrombin Time 28.5 SECONDS (10.1-12.7)
== END ==
PROVIDERS: PCP Internal Medicine; Referring Provider Internal Medicine; Visit Provider Internal Medicine
DX: Z79.01 Long term (current) use of anticoagulants (principal)
CPT/HCPCS: 36415; 85610; 86769

== ENCOUNTER → 2021-05-05 11:13 | Outpatient (CLI) | payer MEDICARE, SELFPAY ==
[2021-05-05 12:03] LABS: INR 2.4 (0.9-1.3); Prothrombin Time 27.3 SECONDS (10.1-12.7)
== END ==
PROVIDERS: PCP Internal Medicine; Referring Provider Internal Medicine; Visit Provider Internal Medicine
DX: Z79.01 Long term (current) use of anticoagulants (principal)
CPT/HCPCS: 36415; 85610

== ENCOUNTER → 2021-05-20 10:43 | Outpatient (CLI) | payer MEDICARE, SELFPAY ==
[2021-05-20 12:15] LABS: Prothrombin Time 34.5 SECONDS (10.1-12.7)
== END ==
PROVIDERS: PCP Internal Medicine; Referring Provider Internal Medicine; Visit Provider Internal Medicine
DX: Z79.01 Long term (current) use of anticoagulants (principal)
CPT/HCPCS: 36415; 85610

== ENCOUNTER → 2021-06-03 10:25 | Outpatient (CLI) | payer MEDICARE, SELFPAY ==
[2021-06-03 11:23] LABS: INR 2.9 (0.9-1.3); Prothrombin Time 34.1 SECONDS (10.1-12.7)
== END ==
PROVIDERS: PCP Internal Medicine; Referring Provider Internal Medicine; Visit Provider Internal Medicine
DX: Z79.01 Long term (current) use of anticoagulants (principal)
CPT/HCPCS: 36415; 85610

== ENCOUNTER → 2021-06-10 10:50 | Outpatient (CLI) | payer MEDICARE, SELFPAY ==
--- NOTE | 2021-06-10 10:51 | DI.RAD.S_ITS ---
PROCEDURE: XR ANKLE RT MIN 3V INDICATIONS: lateral ankle pain TECHNIQUE: 3 views of the ankle were acquired. COMPARISON: None. FINDINGS: Bones: There is a mildly displaced oblique fracture through the right distal fibula/lateral malleolus. There may be a small avulsion fracture fragment extending off the distal, anterior margin of the right tibia seen best on the lateral projection. Ankle mortise is normally aligned. No suspicious bony lesions. Degenerative changes of the tibiotalar joint. Small plantar calcaneal enthesophyte. Soft tissues: No tibiotalar joint effusion. Achilles tendon appears normal. Soft tissue swelling of the right ankle most pronounced over the lateral malleolus. IMPRESSION: 1. Mildly displaced right lateral malleolar fracture. 2. Possible acute avulsion fracture fragment extending off the anterior, distal margin of the right tibia. Recommend correlation with clinical examination. 3. Osteoarthrosis of the tibiotalar joint. 4. Small plantar calcaneal spur. Dictated by: Daniel Alexander M.D. on 06/10/2021 at 11:08 Approved by: Daniel Alexander M.D. on 06/10/2021 at 11:11
== END ==
PROVIDERS: PCP Internal Medicine; Referring Provider Physician Assistant; Visit Provider Physician Assistant
DX: S82.61XA Displaced fracture of lateral malleolus of right fibula, initial encounter for closed fracture (principal); M19.071 Primary osteoarthritis, right ankle and foot; M77.31 Calcaneal spur, right foot; M25.571 Pain in right ankle and joints of right foot
CPT/HCPCS: 73610

== ENCOUNTER → 2021-06-18 11:59 | Outpatient (CLI) | payer MEDICARE, SELFPAY ==
--- NOTE | 2021-06-18 | DI.MG.S_ITS ---
BILATERAL DIGITAL SCREENING MAMMOGRAM 3D/2D WITH CAD: 06/18/2021 CLINICAL: Routine screening. Comparison is made to exams dated: 05/24/2020 mammogram, 12/23/2017 mammogram, and 07/08/2015 mammogram - [facility]. The tissue of both breasts is heterogeneously dense. This may lower the sensitivity of mammography. Current study was also evaluated with a Computer Aided Detection (CAD) system. No significant masses, calcifications, or other findings are seen in either breast. There has been no significant interval change. IMPRESSION: NEGATIVE There is no mammographic evidence of malignancy. A 1 year screening mammogram is recommended. This exam was interpreted at Station ID: [id number]. NOTE: For mammograms, a report in lay terms will be sent to the patient. Approximately 15% of breast malignancies will not be visualized mammographically. In the management of a palpable breast mass, a negative mammogram must not discourage biopsy of a clinically suspicious lesion. Electronically Signed By: Kane whitt/luc:06/18/2021 12:39:04 letter sent: Normal Exam ACR BI-RADS Category 1: Negative 3341F
== END ==
PROVIDERS: PCP Internal Medicine; Referring Provider Internal Medicine; Visit Provider Internal Medicine
DX: Z12.31 Encounter for screening mammogram for malignant neoplasm of breast (principal)
CPT/HCPCS: 77063; 77067

== ENCOUNTER → 2021-06-19 10:29 | Outpatient (CLI) | payer MEDICARE, SELFPAY ==
[2021-06-19 12:42] LABS: INR 3.3 (0.9-1.3); Prothrombin Time 38.7 SECONDS (10.1-12.7)
== END ==
PROVIDERS: PCP Internal Medicine; Referring Provider Internal Medicine; Visit Provider Internal Medicine
DX: Z79.01 Long term (current) use of anticoagulants (principal)
CPT/HCPCS: 36415; 85610

== ENCOUNTER → 2021-07-03 10:42 | Outpatient (CLI) | payer MEDICARE, SELFPAY ==
[2021-07-03 11:47] LABS: INR 2.7 (0.9-1.3); Prothrombin Time 31.9 SECONDS (10.1-12.7)
== END ==
PROVIDERS: PCP Internal Medicine; Referring Provider Internal Medicine; Visit Provider Internal Medicine
DX: Z79.01 Long term (current) use of anticoagulants (principal)
CPT/HCPCS: 36415; 85610

== ENCOUNTER → 2021-07-25 14:17 | Outpatient (CLI) | payer MEDICARE, SELFPAY ==
[2021-07-25 14:59] LABS: INR 3.3 (0.9-1.3); Prothrombin Time 38.4 SECONDS (10.1-12.7)
== END ==
PROVIDERS: PCP Internal Medicine; Referring Provider Internal Medicine; Visit Provider Internal Medicine
DX: Z79.01 Long term (current) use of anticoagulants (principal)
CPT/HCPCS: 36415; 85610

== ENCOUNTER → 2021-08-06 14:23 | Outpatient (CLI) | payer MEDICARE, SELFPAY ==
[2021-08-06 15:41] LABS: INR 3.2 (0.9-1.3); Prothrombin Time 37.7 SECONDS (10.1-12.7)
== END ==
PROVIDERS: PCP Internal Medicine; Referring Provider Internal Medicine; Visit Provider Internal Medicine
DX: Z79.01 Long term (current) use of anticoagulants (principal)
CPT/HCPCS: 36415; 85610

== ENCOUNTER → 2021-08-20 11:21 | Outpatient (CLI) | payer MEDICARE, SELFPAY ==
[2021-08-20 12:29] LABS: Prothrombin Time 35.1 SECONDS (10.1-12.7)
== END ==
PROVIDERS: PCP Internal Medicine; Referring Provider Internal Medicine; Visit Provider Internal Medicine
DX: Z79.01 Long term (current) use of anticoagulants (principal)
CPT/HCPCS: 36415; 85610

== ENCOUNTER → 2021-09-03 11:09 | Outpatient (CLI) | payer MEDICARE, SELFPAY ==
[2021-09-03 12:50] LABS: INR 2.6 (0.9-1.3)
== END ==
PROVIDERS: PCP Internal Medicine; Referring Provider Internal Medicine; Visit Provider Internal Medicine
DX: Z79.01 Long term (current) use of anticoagulants (principal)
CPT/HCPCS: 36415; 85610

== ENCOUNTER → 2021-09-17 11:48 | Outpatient (CLI) | payer MEDICARE, SELFPAY ==
[2021-09-17 12:41] LABS: INR 2.9 (0.9-1.3); Prothrombin Time 34.2 SECONDS (10.1-12.7)
== END ==
PROVIDERS: PCP Internal Medicine; Referring Provider Internal Medicine; Visit Provider Internal Medicine
DX: Z79.01 Long term (current) use of anticoagulants (principal)
CPT/HCPCS: 36415; 85610

== ENCOUNTER → 2021-10-08 09:52 | Outpatient (CLI) | payer MEDICARE, SELFPAY ==
[2021-10-08 11:30] LABS: Add Manual Diff / Slide Review NO; Basophils Absolute Auto 0 /uL (0-100); Basophils Percent Auto 1.1 % (0-2); Eosinophils Absolute Auto 100 /uL (0-450); Eosinophils Percent Auto 1.4 % (2-4); Hematocrit 41.3 % (36-46); Hemoglobin 13.8 g/dL (12.0-16.0); Lymphocytes Absolute Auto 700 /uL (1100-4500); Lymphocytes Percent Auto 17.8 % (25-40); Mean Corpuscular HGB Conc 33.3 % (30-36); Mean Corpuscular Hemoglobin 31.7 PG (26-34); Monocytes Absolute Auto 400 /uL (0-900); Monocytes Percent Auto 11.6 % (3-14); Neutrophils Absolute Auto 2600 /uL (1500-7000); Neutrophils Percent Auto 68.1 % (50-75); Platelet Count 205 X10^3/uL (150-400); Red Blood Cell Count 4.35 X10^6/uL (4.0-5.2); Red Cell Distribution Width 13.7 % (11.6-14.8); White Blood Cell Count 3.8 X10^3/uL (4.5-11.0)
[2021-10-08 11:36] LABS: INR 3.1 (0.9-1.3)
[2021-10-08 11:59] LABS: Alanine Aminotransferase 29 IU/L (<35); Albumin 4.1 g/dL (3.5-5.0); Albumin Globulin Ratio 1.3 (1.0-2.8); Alkaline Phosphatase 69 U/L (38-126); Aspartate Aminotransferase 37 IU/L (14-36); BUN Creatinine Ratio 21.3 (6-22); Bilirubin Total 0.7 mg/dL (0.2-1.3); Blood Urea Nitrogen 16 mg/dL (7-17); Calcium 9.3 mg/dL (8.4-10.2); Carbon Dioxide 27 mmol/L (22-32); Chloride 105 mmol/L (98-107); Cholesterol 204 mg/dL (140-199); Estimated Glomerular Filt Rate > 60.0 mL/min (>60); Globulin 3.2 g/dL (1.7-4.1); Glucose 117 mg/dL (80-110); HDL Cholesterol 62 mg/dL (40-60); HEMOLYSIS < 15 (0-50); LDL Cholesterol Calculated 123 mg/dL (<100); Potassium 4.4 mmol/L (3.4-5.1); Sodium 137 mmol/L (137-145); Total Protein 7.3 g/dL (6.3-8.2); Triglycerides 93 mg/dL (35-150)
== END ==
PROVIDERS: PCP Internal Medicine; Referring Provider Internal Medicine; Visit Provider Internal Medicine
DX: Z79.01 Long term (current) use of anticoagulants (principal); E78.2 Mixed hyperlipidemia; D68.59 Other primary thrombophilia; I10 Essential (primary) hypertension; R94.5 Abnormal results of liver function studies
CPT/HCPCS: 36415; 80053; 80061; 85025; 85610

== ENCOUNTER → 2021-10-21 11:29 | Outpatient (CLI) | payer MEDICARE, SELFPAY ==
[2021-10-21 13:25] LABS: INR 2.9 (0.9-1.3); Prothrombin Time 33.6 SECONDS (10.1-12.7)
== END ==
PROVIDERS: PCP Internal Medicine; Referring Provider Internal Medicine; Visit Provider Internal Medicine
DX: Z79.01 Long term (current) use of anticoagulants (principal)
CPT/HCPCS: 36415; 85610

== ENCOUNTER → 2021-11-12 10:23 | Outpatient (CLI) | payer MEDICARE, SELFPAY ==
[2021-11-12 11:21] LABS: INR 3.3 (0.9-1.3); Prothrombin Time 37.9 SECONDS (10.1-12.7)
== END ==
PROVIDERS: PCP Internal Medicine; Referring Provider Internal Medicine; Visit Provider Internal Medicine
DX: Z79.01 Long term (current) use of anticoagulants (principal)
CPT/HCPCS: 36415; 85610

== ENCOUNTER → 2021-11-26 10:45 | Outpatient (CLI) | payer MEDICARE, SELFPAY ==
[2021-11-26 11:33] LABS: INR 3.5 (0.9-1.3); Prothrombin Time 39.8 SECONDS (10.1-12.7)
== END ==
PROVIDERS: PCP Internal Medicine; Referring Provider Internal Medicine; Visit Provider Internal Medicine
DX: Z79.01 Long term (current) use of anticoagulants (principal)
CPT/HCPCS: 36415; 85610

== ENCOUNTER → 2021-12-10 10:31 | Outpatient (CLI) | payer MEDICARE, SELFPAY | PROVIDERS: PCP Internal Medicine; Referring Provider Internal Medicine; Visit Provider Internal Medicine | DX: D68.59 Other primary thrombophilia (principal); Z79.01 Long term (current) use of anticoagulants; Z86.711 Personal history of pulmonary embolism | CPT/HCPCS: 36415; 85610 ==

== ENCOUNTER → 2021-12-16 10:00 | Outpatient (CLI) | payer MEDICARE, SELFPAY ==
[2021-12-16 10:50] LABS: Appearance Urine UA SL CLOUDY; Bilirubin Urine UA NEGATIVE (NEGATIVE); Color Urine UA YELLOW; Glucose Urine UA NEGATIVE (Negative); Ketones Urine UA NEGATIVE (NEGATIVE); Leukocyte Esterase Urine UA 2+ (NEGATIVE); Nitrite Urine UA NEGATIVE (Negative); Occult Blood Urine UA 3+ (Negative); Protein Urine UA NEGATIVE (Negative); Specific Gravity Urine UA <=1.005 (1.000-1.035); Urobilinogen Urine UA 0.2 E.U./dL (0.2)
[2021-12-16 10:58] LABS: Bacteria Urine None Seen; Culture Indicated Urine Specimen Cultured; RBC Urine >100/HPF (0-5/HPF); Squamous Epithelial Cell Urine 0-1 /HPF (0-5/HPF); WBC Urine 30-100/HPF (0-5/HPF)
== END ==
PROVIDERS: PCP Internal Medicine; Referring Provider Internal Medicine; Visit Provider Internal Medicine
DX: R30.9 Painful micturition, unspecified (principal)
CPT/HCPCS: 81001; 87077; 87086; 87186

== ENCOUNTER → 2021-12-24 10:42 | Outpatient (CLI) | payer MEDICARE, SELFPAY ==
[2021-12-24 11:41] LABS: INR 3.7 (0.9-1.3); Prothrombin Time 42.9 SECONDS (10.1-12.7)
== END ==
PROVIDERS: PCP Internal Medicine; Referring Provider Internal Medicine; Visit Provider Internal Medicine
DX: Z79.01 Long term (current) use of anticoagulants (principal)
CPT/HCPCS: 36415; 85610

== ENCOUNTER → 2021-12-31 10:24 | Outpatient (CLI) | payer MEDICARE, SELFPAY ==
[2021-12-31 11:37] LABS: INR 3.5 (0.9-1.3); Prothrombin Time 39.8 SECONDS (10.1-12.7)
== END ==
PROVIDERS: PCP Internal Medicine; Referring Provider Internal Medicine; Visit Provider Internal Medicine
DX: Z79.01 Long term (current) use of anticoagulants (principal)
CPT/HCPCS: 36415; 85610

== ENCOUNTER → 2022-01-12 10:05 | Outpatient (CLI) | payer MEDICARE, SELFPAY ==
[2022-01-12 10:42] LABS: Appearance Urine UA CLEAR; Bilirubin Urine UA NEGATIVE (NEGATIVE); Color Urine UA YELLOW; Glucose Urine UA NEGATIVE (Negative); Ketones Urine UA NEGATIVE (NEGATIVE); Leukocyte Esterase Urine UA TRACE (NEGATIVE); Nitrite Urine UA NEGATIVE (Negative); Occult Blood Urine UA 2+ (Negative); Protein Urine UA NEGATIVE (Negative); Specific Gravity Urine UA <=1.005 (1.000-1.035); Urobilinogen Urine UA 0.2 E.U./dL (0.2)
[2022-01-12 10:44] LABS: pH Urine UA 5.5 (4.5-8.0)
[2022-01-12 10:51] LABS: Bacteria Urine None Seen; Culture Indicated Urine Cult Not Indicated; RBC Urine 5-10/HPF (0-5/HPF); Squamous Epithelial Cell Urine 1-5 /HPF (0-5/HPF); WBC Urine None Seen (0-5/HPF)
[2022-01-12 11:19] LABS: INR 3.6 (0.9-1.3); Prothrombin Time 41.2 SECONDS (10.1-12.7)
== END ==
PROVIDERS: PCP Internal Medicine; Referring Provider Internal Medicine; Visit Provider Internal Medicine
DX: Z79.01 Long term (current) use of anticoagulants (principal); N39.0 Urinary tract infection, site not specified
CPT/HCPCS: 36415; 81001; 85610

== ENCOUNTER → 2022-01-20 10:09 | Outpatient (CLI) | payer MEDICARE, SELFPAY ==
[2022-01-20 10:54] LABS: INR 2.4 (0.9-1.3); Prothrombin Time 27.4 SECONDS (10.1-12.7)
== END ==
PROVIDERS: PCP Internal Medicine; Referring Provider Internal Medicine; Visit Provider Internal Medicine
DX: Z79.01 Long term (current) use of anticoagulants (principal)
CPT/HCPCS: 36415; 85610

== ENCOUNTER 2022-01-21 13:55 | Emergency (ER) | payer MEDICARE, SELFPAY ==
[2022-01-21 13:59] VITALS: BP 188/94; PULSE 72; RESP 16; TEMP 36.2; O2SAT 96; BMI 20.5
--- NOTE | 2022-01-21 15:07 | DI.RAD.S_ITS ---
PROCEDURE: XR HAND RT MIN 3V INDICATIONS: fall TECHNIQUE: 3 views of the hand(s) acquired. COMPARISON: [facility], , HAND 3V LEFT, 09/30/2012, 12:35. FINDINGS: Bones: There is mild osteopenia. No gross acute fracture or dislocation. Osteoarthritic changes are noted throughout right hand and wrist joints. Carpal bones are normally aligned. No suspicious bony lesions. Soft tissues: No suspicious soft tissue calcifications. IMPRESSION: Right hand and wrist joint osteoarthritis. No gross acute fracture or dislocation. No gross soft tissue abnormality. Dictated by: Noé Natarajan M.D. on 01/21/2022 at 16:02 Approved by: Noé Natarajan M.D. on 01/21/2022 at 16:02
--- NOTE | 2022-01-21 17:50 | ED_ITS ---
HPI - Extremity Injury (Upper) <Eliana Stafford [facility] - Last Filed: 01/21/22 19:39> General Chief Complaint: Extremity Injury, Upper Stated Complaint: Fell/ cut right hand on glass table- on thinners Time Seen by Provider: 01/21/22 17:40 Source: patient Mode of arrival: Ambulatory History of Present Illness HPI narrative: This is a 76-year-old female who presents to the emergency department after she had a mechanical fall at home landing on her left hand sustaining a laceration over the lateral aspect of her 5th metacarpal. Patient endorses she is on warfarin, denies taking any pain medication today, states that she has anxiety and fear of needles, and significant pain related to this wound. Patient has full range of motion, denies any weakness, new sensation changes, able to flex and extend her 5th digit without any abnormality. No tenderness over the metacarpals, she denies knowing when her last tetanus was. Patient states that hydrocodone and oxycodone and all narcotic medications make her ill. She endorses taking something for anxiety past but has not been on anything recently. Patient denies any contamination to her wound, states that she fell onto the angelica. Related Data Home Medications Medication Instructions Recorded Confirmed Fish Oil (#OMEGA 3) 1,000 mg PO Q DAY ##0 11/26/11 10/30/21 coenzyme Q10 100 mg capsule 100 mg PO DAILY 09/06/18 10/30/21 Glucosamine Chondroitin 3 tab PO DAILY 08/17/19 10/30/21 apple cider vinegar 500 mg tablet See Rx Instructions PO DAILY 08/17/19 10/30/21 biotin 5 mg capsule 5 mg PO DAILY 08/17/19 10/30/21 Multivitamin 1 packet PO BID 10/10/20 10/30/21 Previous Rx's Medication Instructions Recorded mupirocin 2 % topical ointment 1 applictn topical BID facial 03/26/20 scratch #15 grams triamcinolone acetonide 0.1 % 1 applic topical QID #80 grams 10/10/20 topical cream omeprazole 20 mg capsule,delayed 40 mg PO DAILY #180 caps 08/08/21 release lisinopril 40 mg tablet 40 mg PO DAILY #90 tabs 09/01/21 warfarin 5 mg tablet 5 mg PO DAILY #90 tabs 09/29/21 conjugated estrogens 0.625 mg/gram 0.625 mg vaginal DAILY #30 grams 12/17/21 vaginal cream simvastatin 40 mg tablet See Rx Instructions .Route 12/29/21 .COMPLEX #90 tabs warfarin 4 mg tablet See Rx Instructions .Route 01/01/22 .COMPLEX #180 tabs alprazolam 0.25 mg tablet 0.25 mg PO BEDTIME PRN anxiety #10 01/21/22 tabs mupirocin 2 % topical ointment 1 applic topical BID #15 grams 01/21/22 Allergies Allergy/AdvReac Type Severity Reaction Status Date / Time acetaminophen Allergy Unknown Verified 10/30/21 10:54 [From [facility] with Codeine] codeine Allergy Unknown Verified 10/30/21 10:54 [From [facility] with Codeine] hydrocodone [HYDROCODONE] AdvReac Mild NAUSEA Verified 10/30/21 10:54 oxycodone [OXYCODONE] AdvReac Mild NAUSEA Verified 10/30/21 10:54 Review of Systems <BRE Negron - Last Filed: 01/21/22 19:39> Review of Systems Narrative: General: denies fever, chills Head/Neck: denies headache, neck pain Eyes: denies visual changes, eye pain Cardio: denies chest pain, palpitations Respiratory: denies shortness of breath, cough GI: denies abdominal pain, nausea, vomiting, or diarrhea : denies dysuria, hematuria or flank pain MSK: denies new joint pain, muscle weakness or swelling Skin: denies rash, itching or wound , 1.5 inch laceration to the lateral aspect of her left hand. Neuro: denies numbness, tingling, dizziness Patient History <BRE Negron - Last Filed: 01/21/22 19:39> Medical History Abnormal LFTs Chronic epigastric pain (2003) Chronic venous insufficiency (01/23/16) DVT (deep venous thrombosis) Essential hypertension Fatty infiltration of liver Fracture of distal end of right fibula History of pulmonary embolism (11/02/13) Hypercoagulable state emt intermediate current use of anticoagulant therapy (12/07/12) Mixed hyperlipidemia Osteopenia (01/23/16) Pulmonary embolism Surgical History History of ERCP (2003) History of exploratory laparotomy (2003) Status post breast biopsy (09/14/95) Status post colonoscopy (09/18/13) Status post endoscopy (09/18/13) Family History Brother Type II diabetes mellitus Sister Type II diabetes mellitus Unknown COPD (chronic obstructive pulmonary disease) Mother Hypertension Social History marital status: household members: spouse occupational status: employed Smoking Status: Former smoker alcohol intake: current substance use type: does not use Smoking Status: Former smoker alcohol intake frequency: 0-2 drinks per day Substance Use Type: does not use Exam <BRE Negron - Last Filed: 01/21/22 19:39> Narrative Exam Narrative: Independently reviewed vitals signs and nursing notes. General: Awake, alert, nontoxic, no cardiorespiratory distress, patient is anxious, fearful of needles, tearful, shaking Head/Neck: Atraumatic, neck supple Eyes: EOMI, conjunctiva normal Nose: nares patent, no rhinorrhea Mouth/Throat: moist mucus membranes Cardio: Regular rate and rhythm, no peripheral edema Respiratory: respirations unlabored without wheezing, stridor, or rales. No retractions, hypoxia or tachypnea GI: Abdomen soft, nontender to palpation x4 quadrants, no guarding or rebound tenderness MSK: Moves all extremities, neurovascularly intact, range of motion without deficit Skin: Normal capillary refill, no rash, laceration which appears like an avulsion flap to the lateral aspect of the dorsum of her hand over the 5th metacarpal. No tenderness to metacarpal, no weakness, flexion extension are intact without deficit, cap refills brisk. Bleeding is slightly oozing but controlled with pressure. Neuro: Normal speech and cognition, normal gait Initial Vital Signs Initial Vital Signs: Vital Signs Temperature 97.2 F L 01/21/22 13:59 Pulse Rate 72 01/21/22 13:59 Respiratory Rate 16 01/21/22 13:59 Blood Pressure 188/94 H 01/21/22 13:59 Pulse Oximetry 96 01/21/22 13:59 Oxygen Delivery Method 01/21/22 13:59 <Nila Conner MD - Last Filed: 01/22/22 05:35> Initial Vital Signs Initial Vital Signs: Vital Signs Temperature 97.2 F L 01/21/22 13:59 Pulse Rate 72 01/21/22 13:59 Respiratory Rate 16 01/21/22 13:59 Blood Pressure 188/94 H 01/21/22 13:59 Pulse Oximetry 96 01/21/22 13:59 Oxygen Delivery Method 01/21/22 13:59 Procedures <BRE Negron - Last Filed: 01/21/22 19:39> Laceration Repair Laceration 1: Site: upper extremity and hand Side (If applicable): right Size (cm): 3 Description: flap, irregular and clean Depth: simple, single layer Local Anesthetic: lidocaine 2% and with bicarb Amount of anesthesia used (mL): 4 Pre-repair: wound explored and irrigated extensively Skin layer closed with: nylon Skin layer suture size: 5-0 Number of sutures: 9 Technique: simple, interrupted Course <BRE Negron - Last Filed: 01/21/22 19:39> Orders Ordered: Discontinued Medications Acetaminophen (Acetaminophen 325 Mg Tablet) 975 mg PO NOW ONE Stop: 01/21/22 17:46 Last Admin: 01/21/22 17:57 Dose: 975 mg Documented By: DIEGO Alprazolam (Alprazolam 0.25 Mg Tablet) 0.25 mg PO NOW ONE Stop: 01/21/22 17:50 Last Admin: 01/21/22 17:57 Dose: 0.25 mg Documented By: BS Bacitracin (Bacitracin Oint 0.9 Gm Pckt) 1 applic TOP NOW ONE Stop: 01/21/22 19:26 Last Admin: 01/21/22 19:34 Dose: 1 applic Documented By: CTS Diphtheria/Tetanus/Acell Pertussis (Tet,Diph,Pertuss(Acell),Vac/Pf 0.5 Ml Syringe) 0.5 ml IM .ONCE ONE Stop: 01/21/22 17:47 Last Admin: 01/21/22 17:57 Dose: 0.5 ml Documented By: BS Vital Signs Vital signs: Vital Signs - 8 hr 01/21/22 13:59 Temperature 97.2 F L Pulse Rate 72 Respiratory Rate 16 Blood Pressure 188/94 H Pulse Oximetry 96 Oxygen Delivery Method Room Air <Nila Conner MD - Last Filed: 01/22/22 05:35> Orders Ordered: Discontinued Medications Acetaminophen (Acetaminophen 325 Mg Tablet) 975 mg PO NOW ONE Stop: 01/21/22 17:46 Last Admin: 01/21/22 17:57 Dose: 975 mg Documented By: BS Alprazolam (Alprazolam 0.25 Mg Tablet) 0.25 mg PO NOW ONE Stop: 01/21/22 17:50 Last Admin: 01/21/22 17:57 Dose: 0.25 mg Documented By: BS Bacitracin (Bacitracin Oint 0.9 Gm Pckt) 1 applic TOP NOW ONE Stop: 01/21/22 19:26 Last Admin: 01/21/22 19:34 Dose: 1 applic Documented By: CTS Diphtheria/Tetanus/Acell Pertussis (Tet,Diph,Pertuss(Acell),Vac/Pf 0.5 Ml Syringe) 0.5 ml IM .ONCE ONE Stop: 01/21/22 17:47 Last Admin: 01/21/22 17:57 Dose: 0.5 ml Documented By: BS Vital Signs Vital signs: Vital Signs - 8 hr 01/21/22 13:59 Temperature 97.2 F L Pulse Rate 72 Respiratory Rate 16 Blood Pressure 188/94 H Pulse Oximetry 96 Oxygen Delivery Method Room Air MDM - Extremity Injury (Upper) <Eliana Stafford [facility] - Last Filed: 01/21/22 19:39> Imaging Data Extremity x-ray #1: Radiologist's Impression: PROCEDURE:? XR HAND RT MIN 3V ? INDICATIONS:? fall ? TECHNIQUE:? 3 views of the hand(s) acquired.? ? COMPARISON:? [facility], , HAND 3V LEFT, 09/30/2012, 12:35. ? FINDINGS:? ? Bones:? There is mild osteopenia.? No gross acute fracture or dislocation.? Osteoarthritic changes are noted throughout right hand and wrist joints.? Carpal bones are normally aligned.? No suspicious bony lesions.? ? Soft tissues:? No suspicious soft tissue calcifications.? ? ? IMPRESSION:? Right hand and wrist joint osteoarthritis.? No gross acute fracture or dislocation.? No gross soft tissue abnormality. ? ? Dictated by: Noé Natarajan M.D. on 01/21/2022 at 16:02 ? ? Approved by: Noé Natarajan M.D. on 01/21/2022 at 16:02 ? [facility] Narrative Medical decision making narrative: This is a 76-year-old female presents to the emergency department after mechanical fall earlier today where she tripped and fell down on her right cutting the lateral aspect of her right hand over her 5th MCP joint. X-rays negative for fracture or gross soft tissue abnormality, shows right hand and wrist joint osteoarthritis. Patient is chronically anticoagulated on Coumadin for history pulmonary emboli. Her INR goal is 2.5-3. She did not hit her head, has a laceration on a lateral aspect of her right hand, it was oozing blood but would stop with pressure. She received irrigation with normal saline, there was no foreign debris, it was not contaminated, her tetanus was updated, she was given Xanax for anxiety and Tylenol for pain and she reports allergy in incompatibility to all other pain medicines. This worked quite well for her anxiety she has significant fear of needles and was tearful and tremulous with fear prior to starting procedure. She required nine sutures for this flap laceration, does not appear to have damaged any deep tissues or structures, she has full range of motion of her right hand without any deficit, brisk cap refill, flexion extension is intact at each joint or had any deficit. No tenderness over her 5th metacarpal. She understands to have her sutures removed in 10 days id she was given a prescription for mupirocin ointment and Xanax for anxiety/pain. Encouraged her to follow-up with her PCP as needed, and to return to the emergency department for any worsening of this wound or concern for infection. Patient is appropriate and amenable to discharge home. Vital signs are stable on repeat examination is unremarkable. Patient has been informed of results. Patient has been given strict return to ER precautions for any new or worsening symptoms. Patient understands to follow up closely with outpatient providers as instructed. Patient understands plan and agrees to discharge home. All questions and concerns answered at this time. Discharge Plan Departure Patient Disposition: Home Clinical Impression: Laceration, Chronic anticoagulation Instructions: DI for Laceration Repair Activity Restrictions/Additional Instructions: *You have been diagnosed with laceration over your 5th MCP joint. Please keep this clean, you may wash gentle cleanser morning and night but do scrub. Please a gentle pressure dressing to prevent this from bleeding the next 24 hours. you received nine sutures today. Keep them covered at all times while your sutures are in, please have them removed in 10 days. Please use a topical antibiotic ointment to cover this wound for the next five days to help prevent infection. Stay hydrated, take Tylenol as needed for pain, you may take an anxiety medication if needed. Please follow-up with your primary doctor if you have any worsening or come back to the emergency department if you develop any redness or streaking up your arm, limited range of motion or fever. Your x-ray shows osteoarthritis of your right hand and wrist but no fracture or other concerning abnormality. Please use ice, elevation, and other modalities as needed for pain control. *What to do: *Please continue to take your regular medications as directed. [ x] New medication prescriptions sent to your pharmacy: [ [facility]] [ ] New medication written as a paper prescription [ ] No new medications given *Please follow up with your primary care provider in 2-3 days, call for an appointment. Let them know you were seen in the Emergency Department and that we asked that you be seen for follow-up. We will electronically transmit a record of today's note if your PCP is in our system *If you do not have a primary care provider please contact [phone] to establish care with one of the [facility] primary care providers. *Return to Emergency Department if you should have any new, worsening or concerning symptoms, such as [fever greater than 101F, chills, worsening pain, persistent vomiting or other bothersome symptoms] Prescriptions: New mupirocin 2 % ointment 1 applic topical BID Qty: 15 0RF alprazolam 0.25 mg tablet 0.25 mg PO BEDTIME PRN (Reason: anxiety) Qty: 10 0RF No Action mupirocin 2 % ointment 1 applictn TOP BID Qty: 15 0RF Fish Oil (#OMEGA 3) 1,000 mg PO Q DAY Qty: 0 omeprazole 20 mg capsule,delayed release(DR/EC) 40 mg PO DAILY Qty: 180 1RF lisinopril 40 mg tablet 40 mg PO DAILY Qty: 90 1RF warfarin 5 mg tablet 5 mg PO DAILY Qty: 90 3RF Rx Instructions: Take 9mg Wednesday and Wednesday and 8mg all other days, or as directed simvastatin 40 mg tablet See Rx Instructions .ROUTE .COMPLEX Qty: 90 3RF Dose Instruction: TAKE 1 TABLET(40 MG) BY MOUTH DAILY AT BEDTIME Rx Instructions: TAKE 1 TABLET(40 MG) BY MOUTH DAILY AT BEDTIME warfarin 4 mg tablet See Rx Instructions .ROUTE .COMPLEX Qty: 180 3RF Rx Instructions: Take 6mg Wednesday and 8mg all other days, or as directed coenzyme Q10 100 mg capsule 100 mg PO DAILY biotin 5 mg capsule 5 mg PO DAILY Glucosamine Chondroitin 3 tab PO DAILY apple cider vinegar 500 mg tablet See Rx Instructions PO DAILY Rx Instructions: 2 TABS IN THE MORNING 2 TAB IN THE EVENING PO daily; Multivitamin 1 packet PO BID triamcinolone acetonide 0.1 % cream 1 applic topical QID Qty: 80 0RF conjugated estrogens 0.625 mg/gram cream 0.625 mg vaginal DAILY Qty: 30 11RF Rx Instructions: Stop med for 5 days per month. Referrals: Arash Garcia MD [Primary Care Provider] - Visit Report Forms: Patient Portal/API <Nila Conner MD - Last Filed: 01/22/22 05:35> Cosign ED Attending Cosignature Attestation: I was immediately available in the department for consultation throughout this patient's visit. I agree with documentation as above. Nila Conner MD
[2022-01-21] MEDS: TET,DIPH,PERTUSS(ACELL),VAC/PF 0.5 ML SYRINGE IM (17:57)
[2022-01-21] MEDS: ALPRAZolam 0.25 MG TABLET PO (17:57)
[2022-01-21] MEDS: ACETAMINOPHEN 325 MG TABLET 975 MG PO (17:57)
[2022-01-21] MEDS: BACITRACIN OINT 0.9 GM PCKT 1 APPLIC TOP (19:34)
== END 2022-01-21 19:37 | disposition home or self-care (01) ==
PROVIDERS: Emergency Provider Nurse Practitioner Critical Care Medicine; PCP Internal Medicine
DX: S61.216A Laceration without foreign body of right little finger without damage to nail, initial encounter (principal); W01.0XXA Fall on same level from slipping, tripping and stumbling without subsequent striking against object, initial encounter; Z79.01 Long term (current) use of anticoagulants; Z23 Encounter for immunization
CPT/HCPCS: 12002; 73130; 90471; 99283; 99284; 90715

== ENCOUNTER → 2022-01-27 09:27 | Outpatient (CLI) | payer MEDICARE, SELFPAY ==
[2022-01-27 10:54] LABS: INR 2.7 (0.9-1.3); Prothrombin Time 30.9 SECONDS (10.1-12.7)
== END ==
PROVIDERS: PCP Internal Medicine; Referring Provider Internal Medicine; Visit Provider Internal Medicine
DX: Z79.01 Long term (current) use of anticoagulants (principal)
CPT/HCPCS: 36415; 85610

== ENCOUNTER → 2022-02-05 10:38 | Outpatient (CLI) | payer MEDICARE, SELFPAY ==
[2022-02-05 11:08] LABS: INR 2.5 (0.9-1.3); Prothrombin Time 28.8 SECONDS (10.1-12.7)
== END ==
PROVIDERS: PCP Internal Medicine; Referring Provider Internal Medicine; Visit Provider Internal Medicine
DX: Z79.01 Long term (current) use of anticoagulants (principal)
CPT/HCPCS: 36415; 85610

== ENCOUNTER → 2022-02-18 10:54 | Outpatient (CLI) | payer MEDICARE, SELFPAY ==
[2022-02-18 12:27] LABS: INR 2.4 (0.9-1.3); Prothrombin Time 26.8 SECONDS (10.1-12.7)
== END ==
PROVIDERS: PCP Internal Medicine; Referring Provider Internal Medicine; Visit Provider Internal Medicine
DX: Z79.01 Long term (current) use of anticoagulants (principal)
CPT/HCPCS: 36415; 85610

== ENCOUNTER → 2022-03-02 11:14 | Outpatient (CLI) | payer MEDICARE, SELFPAY ==
[2022-03-02 13:10] LABS: INR 2.6 (0.9-1.3); Prothrombin Time 30.4 SECONDS (10.1-12.7)
== END ==
PROVIDERS: PCP Internal Medicine; Referring Provider Internal Medicine; Visit Provider Internal Medicine
DX: Z79.01 Long term (current) use of anticoagulants (principal)
CPT/HCPCS: 36415; 85610

== ENCOUNTER → 2022-03-17 10:36 | Outpatient (CLI) | payer MEDICARE, SELFPAY ==
[2022-03-17 11:24] LABS: Prothrombin Time 34.7 SECONDS (10.1-12.7)
== END ==
PROVIDERS: PCP Internal Medicine; Referring Provider Internal Medicine; Visit Provider Internal Medicine
DX: Z79.01 Long term (current) use of anticoagulants (principal)
CPT/HCPCS: 36415; 85610

== ENCOUNTER → 2022-03-31 10:46 | Outpatient (CLI) | payer MEDICARE, SELFPAY ==
[2022-03-31 12:19] LABS: INR 2.9 (0.9-1.3); Prothrombin Time 33.6 SECONDS (10.1-12.7)
== END ==
PROVIDERS: PCP Internal Medicine; Referring Provider Internal Medicine; Visit Provider Internal Medicine
DX: Z79.01 Long term (current) use of anticoagulants (principal); Z86.711 Personal history of pulmonary embolism
CPT/HCPCS: 36415; 85610

== ENCOUNTER → 2022-04-22 10:33 | Outpatient (CLI) | payer MEDICARE, SELFPAY ==
[2022-04-22 12:21] LABS: INR 2.7 (0.9-1.3); Prothrombin Time 31.3 SECONDS (10.1-12.7)
== END ==
PROVIDERS: PCP Internal Medicine; Referring Provider Internal Medicine; Visit Provider Internal Medicine
DX: Z79.01 Long term (current) use of anticoagulants (principal); Z86.711 Personal history of pulmonary embolism
CPT/HCPCS: 36415; 85610

== ENCOUNTER → 2022-05-19 11:18 | Outpatient (CLI) | payer MEDICARE, SELFPAY ==
[2022-05-19 12:50] LABS: INR 2.8 (0.9-1.3); Prothrombin Time 32.6 SECONDS (10.1-12.7)
== END ==
PROVIDERS: PCP Internal Medicine; Referring Provider Internal Medicine; Visit Provider Internal Medicine
DX: Z79.01 Long term (current) use of anticoagulants (principal); Z86.711 Personal history of pulmonary embolism
CPT/HCPCS: 36415; 85610

== ENCOUNTER → 2022-06-17 11:31 | Outpatient (CLI) | payer MEDICARE, SELFPAY ==
[2022-06-17 12:32] LABS: INR 1.8 (0.9-1.3); Prothrombin Time 20.9 SECONDS (10.1-12.7)
== END ==
PROVIDERS: PCP Internal Medicine; Referring Provider Internal Medicine; Visit Provider Internal Medicine
DX: Z79.01 Long term (current) use of anticoagulants (principal); Z86.711 Personal history of pulmonary embolism
CPT/HCPCS: 36415; 85610

== ENCOUNTER → 2022-06-25 10:25 | Outpatient (CLI) | payer MEDICARE, SELFPAY ==
[2022-06-25 11:08] LABS: INR 2.4 (0.9-1.3); Prothrombin Time 27.9 SECONDS (10.1-12.7)
== END ==
PROVIDERS: PCP Internal Medicine; Referring Provider Internal Medicine; Visit Provider Internal Medicine
DX: Z79.01 Long term (current) use of anticoagulants (principal); Z86.711 Personal history of pulmonary embolism
CPT/HCPCS: 36415; 85610

== ENCOUNTER → 2022-07-09 11:10 | Outpatient (CLI) | payer MEDICARE, SELFPAY ==
[2022-07-09 11:46] LABS: INR 2.4 (0.9-1.3); Prothrombin Time 27.5 SECONDS (10.1-12.7)
== END ==
PROVIDERS: PCP Internal Medicine; Referring Provider Internal Medicine; Visit Provider Internal Medicine
DX: Z79.01 Long term (current) use of anticoagulants (principal); Z86.711 Personal history of pulmonary embolism
CPT/HCPCS: 36415; 85610

== ENCOUNTER → 2022-07-23 10:23 | Outpatient (CLI) | payer MEDICARE, SELFPAY ==
[2022-07-23 12:21] LABS: INR 2.6 (0.9-1.3); Prothrombin Time 29.8 SECONDS (10.1-12.7)
== END ==
PROVIDERS: PCP Internal Medicine; Referring Provider Internal Medicine; Visit Provider Internal Medicine
DX: Z79.01 Long term (current) use of anticoagulants (principal); Z86.711 Personal history of pulmonary embolism
CPT/HCPCS: 36415; 85610

== ENCOUNTER → 2022-07-30 11:44 | Outpatient (CLI) | payer MEDICARE, SELFPAY ==
--- NOTE | 2022-07-30 11:46 | DI.RAD.S_ITS ---
PROCEDURE: XR LUMBAR SPINE 2-3V INDICATIONS: lumbar pain x 5 days TECHNIQUE: 3 views of the lumbar spine were acquired. COMPARISON: [facility], , L-SPINE 2-3 VIEWS, 10/27/2007, 8:01. FINDINGS: Bones: Generalized decrease in osseous mineralization noted. Convex right thoracolumbar scoliosis present. Diffuse disc space narrowing and hypertrophic facet joints noted particularly at the thoracolumbar junction. Moderate marginal osteophytes present Soft tissues: Overlying bowel gas pattern is normal. No suspicious soft tissue calcifications. IMPRESSION: Advanced osteopenia limits assessment of osseous structures. Degenerative disc disease, arthropathy and thoracolumbar dextroscoliosis, increased from the prior. Consider follow-up MR or CT for further evaluation Approved by: Al Kenny M.D. on 07/30/2022 at 18:28
== END ==
PROVIDERS: PCP Internal Medicine; Referring Provider Internal Medicine; Visit Provider Internal Medicine
DX: M51.36 Other intervertebral disc degeneration, lumbar region (principal); M47.816 Spondylosis without myelopathy or radiculopathy, lumbar region; M41.9 Scoliosis, unspecified; M54.50 Low back pain, unspecified
CPT/HCPCS: 72100

== ENCOUNTER → 2022-08-06 10:32 | Outpatient (CLI) | payer MEDICARE, SELFPAY ==
[2022-08-06 12:45] LABS: INR 1.9 (0.9-1.3); Prothrombin Time 22.3 SECONDS (10.1-12.7)
== END ==
PROVIDERS: PCP Internal Medicine; Referring Provider Internal Medicine; Visit Provider Internal Medicine
DX: Z79.01 Long term (current) use of anticoagulants (principal); Z86.711 Personal history of pulmonary embolism
CPT/HCPCS: 36415; 85610

== ENCOUNTER → 2022-08-13 11:34 | Outpatient (CLI) | payer MEDICARE, SELFPAY ==
[2022-08-13 12:23] LABS: INR 2.2 (0.9-1.3); Prothrombin Time 25.7 SECONDS (10.1-12.7)
== END ==
PROVIDERS: PCP Internal Medicine; Referring Provider Internal Medicine; Visit Provider Internal Medicine
DX: Z79.01 Long term (current) use of anticoagulants (principal); Z86.711 Personal history of pulmonary embolism
CPT/HCPCS: 36415; 85610

== ENCOUNTER → 2022-08-27 10:21 | Outpatient (CLI) | payer MEDICARE, SELFPAY ==
[2022-08-27 11:07] LABS: INR 1.9 (0.9-1.3)
== END ==
PROVIDERS: PCP Internal Medicine; Referring Provider Internal Medicine; Visit Provider Internal Medicine
DX: I82.409 Acute embolism and thrombosis of unspecified deep veins of unspecified lower extremity (principal)
CPT/HCPCS: 36415; 85610

== ENCOUNTER → 2022-09-03 11:31 | Outpatient (CLI) | payer MEDICARE, SELFPAY ==
[2022-09-03 13:48] LABS: INR 1.8 (0.9-1.3); Prothrombin Time 20.8 SECONDS (10.1-12.7)
== END ==
PROVIDERS: PCP Internal Medicine; Referring Provider Internal Medicine; Visit Provider Internal Medicine
DX: Z79.01 Long term (current) use of anticoagulants (principal); Z86.711 Personal history of pulmonary embolism
CPT/HCPCS: 36415; 85610

== ENCOUNTER → 2022-09-10 10:29 | Outpatient (CLI) | payer MEDICARE, SELFPAY | PROVIDERS: PCP Internal Medicine; Referring Provider Internal Medicine; Visit Provider Internal Medicine | DX: Z79.01 Long term (current) use of anticoagulants (principal); Z86.711 Personal history of pulmonary embolism | CPT/HCPCS: 36415; 85610 ==

== ENCOUNTER → 2022-09-21 10:47 | Outpatient (CLI) | payer MEDICARE, SELFPAY ==
[2022-09-21 12:23] LABS: INR 2.6 (0.9-1.3)
== END ==
PROVIDERS: PCP Internal Medicine; Referring Provider Internal Medicine; Visit Provider Internal Medicine
DX: I82.409 Acute embolism and thrombosis of unspecified deep veins of unspecified lower extremity (principal)
CPT/HCPCS: 36415; 85610

== ENCOUNTER → 2022-10-05 11:03 | Outpatient (CLI) | payer MEDICARE, SELFPAY ==
[2022-10-05 12:12] LABS: INR 2.2 (0.9-1.3); Prothrombin Time 25.7 SECONDS (10.1-12.7)
== END ==
PROVIDERS: PCP Internal Medicine; Referring Provider Internal Medicine; Visit Provider Internal Medicine
DX: Z79.01 Long term (current) use of anticoagulants (principal)
CPT/HCPCS: 36415; 85610

== ENCOUNTER → 2022-10-12 11:09 | Outpatient (CLI) | payer MEDICARE, SELFPAY ==
[2022-10-12 12:20] LABS: INR 2.3 (0.9-1.3); Prothrombin Time 27.1 SECONDS (10.1-12.7)
== END ==
PROVIDERS: PCP Internal Medicine; Referring Provider Internal Medicine; Visit Provider Internal Medicine
DX: I87.2 Venous insufficiency (chronic) (peripheral) (principal)
CPT/HCPCS: 36415; 85610

== ENCOUNTER → 2022-10-19 12:32 | Outpatient (CLI) | payer MEDICARE, SELFPAY ==
[2022-10-19 14:03] LABS: INR 2.4 (0.9-1.3); Prothrombin Time 27.4 SECONDS (10.1-12.7)
== END ==
PROVIDERS: PCP Internal Medicine; Referring Provider Internal Medicine; Visit Provider Internal Medicine
DX: I82.409 Acute embolism and thrombosis of unspecified deep veins of unspecified lower extremity (principal)
CPT/HCPCS: 36415; 85610

== ENCOUNTER → 2022-11-02 11:57 | Outpatient (CLI) | payer MEDICARE, SELFPAY ==
[2022-11-02 14:25] LABS: INR 2.8 (0.9-1.3)
== END ==
PROVIDERS: PCP Internal Medicine; Referring Provider Internal Medicine; Visit Provider Internal Medicine
DX: I82.409 Acute embolism and thrombosis of unspecified deep veins of unspecified lower extremity (principal)
CPT/HCPCS: 36415; 85610

== ENCOUNTER → 2022-11-05 09:46 | Outpatient (CLI) | payer MEDICARE, SELFPAY ==
[2022-11-05 11:13] LABS: Add Manual Diff / Slide Review NO; Basophils Absolute Auto 0 /uL (0-100); Eosinophils Absolute Auto 100 /uL (0-450); Eosinophils Percent Auto 2.3 % (2-4); Hematocrit 40.3 % (36-46); Hemoglobin 13.6 g/dL (12.0-16.0); Lymphocytes Absolute Auto 700 /uL (1100-4500); Lymphocytes Percent Auto 17.3 % (25-40); Mean Corpuscular HGB Conc 33.8 % (30-36); Mean Corpuscular Hemoglobin 31.7 PG (26-34); Mean Corpuscular Volume 93.6 fL (80-100); Monocytes Absolute Auto 500 /uL (0-900); Monocytes Percent Auto 12.8 % (3-14); Neutrophils Absolute Auto 2700 /uL (1500-7000); Neutrophils Percent Auto 66.6 % (50-75); Platelet Count 214 X10^3/uL (150-400); Red Blood Cell Count 4.31 X10^6/uL (4.0-5.2); Red Cell Distribution Width 14.2 % (11.6-14.8); White Blood Cell Count 4.1 X10^3/uL (4.5-11.0)
[2022-11-05 11:43] LABS: Alanine Aminotransferase 38 IU/L (<35); Albumin Globulin Ratio 1.3 (1.0-2.8); Alkaline Phosphatase 78 U/L (38-126); Aspartate Aminotransferase 43 IU/L (14-36); BUN Creatinine Ratio 23.8 (6-22); Bilirubin Total 0.5 mg/dL (0.2-1.3); Blood Urea Nitrogen 15 mg/dL (7-17); Calcium 8.9 mg/dL (8.4-10.2); Carbon Dioxide 26 mmol/L (22-32); Chloride 106 mmol/L (98-107); Cholesterol 209 mg/dL (140-199); Estimated Glomerular Filt Rate > 60 mL/min (>60); Glucose 118 mg/dL (80-110); HDL Cholesterol 65 mg/dL (40-60); HEMOLYSIS < 15 (0-50); LDL Cholesterol Calculated 132 mg/dL (<100); Potassium 4.1 mmol/L (3.4-5.1); Sodium 140 mmol/L (137-145); Triglycerides 59 mg/dL (35-150)
== END ==
PROVIDERS: PCP Internal Medicine; Referring Provider Internal Medicine; Visit Provider Internal Medicine
DX: D68.59 Other primary thrombophilia (principal); I10 Essential (primary) hypertension; R94.5 Abnormal results of liver function studies; Z79.01 Long term (current) use of anticoagulants
CPT/HCPCS: 36415; 80053; 80061; 85025

== ENCOUNTER → 2022-11-09 10:36 | Outpatient (CLI) | payer MEDICARE, SELFPAY ==
[2022-11-09 11:28] LABS: Appearance Urine UA CLEAR; Bilirubin Urine UA NEGATIVE (NEGATIVE); Color Urine UA YELLOW; Glucose Urine UA NEGATIVE (Negative); Ketones Urine UA NEGATIVE (NEGATIVE); Leukocyte Esterase Urine UA 1+ (NEGATIVE); Nitrite Urine UA NEGATIVE (Negative); Occult Blood Urine UA 2+ (Negative); Protein Urine UA NEGATIVE (Negative); Specific Gravity Urine UA <=1.005 (1.000-1.035); Urobilinogen Urine UA 0.2 E.U./dL (0.2)
[2022-11-09 11:38] LABS: Bacteria Urine Few (2-10); Culture Indicated Urine Specimen Cultured; RBC Urine 1-5/HPF (0-5/HPF); Squamous Epithelial Cell Urine 0-1 /HPF (0-5/HPF); WBC Urine 5-10/HPF (0-5/HPF)
== END ==
PROVIDERS: PCP Internal Medicine; Referring Provider Internal Medicine; Visit Provider Internal Medicine
DX: R39.9 Unspecified symptoms and signs involving the genitourinary system (principal)
CPT/HCPCS: 81001; 87077; 87086; 87186

== ENCOUNTER → 2022-11-23 11:19 | Outpatient (CLI) | payer MEDICARE, SELFPAY ==
[2022-11-23 12:03] LABS: INR 2.4 (0.9-1.3); Prothrombin Time 27.9 SECONDS (10.1-12.7)
== END ==
PROVIDERS: PCP Internal Medicine; Referring Provider Internal Medicine; Visit Provider Internal Medicine
DX: D68.59 Other primary thrombophilia (principal); I10 Essential (primary) hypertension; R94.5 Abnormal results of liver function studies; Z79.01 Long term (current) use of anticoagulants
CPT/HCPCS: 85610

== ENCOUNTER → 2022-12-07 09:56 | Outpatient (CLI) | payer MEDICARE, SELFPAY ==
[2022-12-07 12:01] LABS: INR 2.4 (0.9-1.3); Prothrombin Time 27.4 SECONDS (10.1-12.7)
== END ==
PROVIDERS: PCP Internal Medicine; Referring Provider Internal Medicine; Visit Provider Internal Medicine
DX: Z79.01 Long term (current) use of anticoagulants (principal)
CPT/HCPCS: 36415; 85610

== ENCOUNTER → 2022-12-28 11:16 | Outpatient (CLI) | payer MEDICARE, SELFPAY ==
[2022-12-28 13:15] LABS: INR 2.3 (0.9-1.3); Prothrombin Time 26.5 SECONDS (10.1-12.7)
== END ==
PROVIDERS: PCP Internal Medicine; Referring Provider Internal Medicine; Visit Provider Internal Medicine
DX: I82.409 Acute embolism and thrombosis of unspecified deep veins of unspecified lower extremity (principal)
CPT/HCPCS: 36415; 85610

== ENCOUNTER → 2023-01-18 11:09 | Outpatient (CLI) | payer MEDICARE, SELFPAY ==
[2023-01-18 13:07] LABS: INR 2.1 (0.9-1.3); Prothrombin Time 23.7 SECONDS (10.1-12.7)
== END ==
PROVIDERS: PCP Internal Medicine; Referring Provider Internal Medicine; Visit Provider Internal Medicine
DX: I82.409 Acute embolism and thrombosis of unspecified deep veins of unspecified lower extremity (principal)
CPT/HCPCS: 36415; 85610

== ENCOUNTER → 2023-01-27 11:01 | Outpatient (CLI) | payer MEDICARE, SELFPAY ==
[2023-01-27 12:36] LABS: INR 3.1 (0.9-1.3); Prothrombin Time 36.5 SECONDS (10.1-12.7)
== END ==
PROVIDERS: PCP Internal Medicine; Referring Provider Internal Medicine; Visit Provider Internal Medicine
DX: I82.409 Acute embolism and thrombosis of unspecified deep veins of unspecified lower extremity (principal)
CPT/HCPCS: 36415; 85610

== ENCOUNTER → 2023-02-03 10:57 | Outpatient (CLI) | payer MEDICARE, SELFPAY ==
[2023-02-03 13:36] LABS: INR 3.7 (0.9-1.3); Prothrombin Time 42.8 SECONDS (10.1-12.7)
== END ==
PROVIDERS: PCP Internal Medicine; Referring Provider Internal Medicine; Visit Provider Internal Medicine
DX: I82.409 Acute embolism and thrombosis of unspecified deep veins of unspecified lower extremity (principal)
CPT/HCPCS: 36415; 85610

== ENCOUNTER → 2023-02-10 10:51 | Outpatient (CLI) | payer MEDICARE, SELFPAY ==
[2023-02-10 12:11] LABS: INR 3.1 (0.9-1.3); Prothrombin Time 36.5 SECONDS (10.1-12.7)
== END ==
PROVIDERS: PCP Internal Medicine; Referring Provider Internal Medicine; Visit Provider Internal Medicine
DX: I82.409 Acute embolism and thrombosis of unspecified deep veins of unspecified lower extremity (principal)
CPT/HCPCS: 36415; 85610

== ENCOUNTER → 2023-03-03 11:16 | Outpatient (CLI) | payer MEDICARE, SELFPAY ==
[2023-03-03 12:41] LABS: INR 4.2 (0.9-1.3); Prothrombin Time 48.9 SECONDS (10.1-12.7)
== END ==
PROVIDERS: PCP Internal Medicine; Referring Provider Internal Medicine; Visit Provider Internal Medicine
DX: I82.409 Acute embolism and thrombosis of unspecified deep veins of unspecified lower extremity (principal)
CPT/HCPCS: 36415; 85610

== ENCOUNTER → 2023-03-17 10:28 | Outpatient (CLI) | payer MEDICARE, SELFPAY ==
[2023-03-17 11:34] LABS: INR 3.9 (0.9-1.3); Prothrombin Time 45.6 SECONDS (10.1-12.7)
== END ==
PROVIDERS: PCP Internal Medicine; Referring Provider Internal Medicine; Visit Provider Internal Medicine
DX: D68.59 Other primary thrombophilia (principal); Z79.01 Long term (current) use of anticoagulants; Z86.711 Personal history of pulmonary embolism
CPT/HCPCS: 36415; 85610

== ENCOUNTER → 2023-03-31 11:11 | Outpatient (CLI) | payer MEDICARE, SELFPAY ==
[2023-03-31 12:07] LABS: INR 2.9 (0.9-1.3); Prothrombin Time 34.2 SECONDS (10.1-12.7)
== END ==
PROVIDERS: PCP Internal Medicine; Referring Provider Internal Medicine; Visit Provider Internal Medicine
DX: I87.2 Venous insufficiency (chronic) (peripheral) (principal); Z79.01 Long term (current) use of anticoagulants
CPT/HCPCS: 36415; 85610

== ENCOUNTER → 2023-04-22 11:54 | Outpatient (CLI) | payer MEDICARE, SELFPAY ==
[2023-04-22 13:36] LABS: INR 3.4 (0.9-1.3)
== END ==
PROVIDERS: PCP Internal Medicine; Referring Provider Internal Medicine; Visit Provider Internal Medicine
DX: I82.409 Acute embolism and thrombosis of unspecified deep veins of unspecified lower extremity (principal)
CPT/HCPCS: 36415; 85610

== ENCOUNTER → 2023-05-04 10:39 | Outpatient (CLI) | payer MEDICARE, SELFPAY ==
[2023-05-04 12:34] LABS: INR 3.3 (0.9-1.3)
[2023-05-04 12:35] LABS: Prothrombin Time 38.9 SECONDS (10.1-12.7)
== END ==
PROVIDERS: PCP Internal Medicine; Referring Provider Internal Medicine; Visit Provider Internal Medicine
DX: I82.409 Acute embolism and thrombosis of unspecified deep veins of unspecified lower extremity (principal)
CPT/HCPCS: 36415; 85610

== ENCOUNTER → 2023-05-11 10:55 | Outpatient (CLI) | payer MEDICARE, SELFPAY ==
[2023-05-11 11:33] LABS: INR 3.8 (0.9-1.3); Prothrombin Time 44.5 SECONDS (10.1-12.7)
== END ==
PROVIDERS: PCP Internal Medicine; Referring Provider Internal Medicine; Visit Provider Internal Medicine
DX: Z79.01 Long term (current) use of anticoagulants (principal); Z86.711 Personal history of pulmonary embolism
CPT/HCPCS: 36415; 85610

== ENCOUNTER → 2023-05-25 10:36 | Outpatient (CLI) | payer MEDICARE, SELFPAY ==
[2023-05-25 13:08] LABS: INR 2.8 (0.9-1.3); Prothrombin Time 31.9 SECONDS (10.1-12.7)
== END ==
PROVIDERS: PCP Internal Medicine; Referring Provider Internal Medicine; Visit Provider Internal Medicine
DX: Z79.01 Long term (current) use of anticoagulants (principal); Z86.711 Personal history of pulmonary embolism
CPT/HCPCS: 36415; 85610

== ENCOUNTER → 2023-06-07 11:27 | Outpatient (CLI) | payer MEDICARE, SELFPAY ==
[2023-06-07 13:04] LABS: INR 2.9 (0.9-1.3); Prothrombin Time 33.6 SECONDS (10.1-12.7)
== END ==
PROVIDERS: PCP Internal Medicine; Referring Provider Internal Medicine; Visit Provider Internal Medicine
DX: I82.409 Acute embolism and thrombosis of unspecified deep veins of unspecified lower extremity (principal)
CPT/HCPCS: 36415; 85610

== ENCOUNTER → 2023-06-28 10:45 | Outpatient (CLI) | payer MEDICARE, SELFPAY ==
[2023-06-28 11:56] LABS: INR 2.3 (0.9-1.3); Prothrombin Time 27.2 SECONDS (9.4-12.5)
== END ==
PROVIDERS: PCP Internal Medicine; Referring Provider Internal Medicine; Visit Provider Internal Medicine
DX: I82.409 Acute embolism and thrombosis of unspecified deep veins of unspecified lower extremity (principal)
CPT/HCPCS: 36415; 85610

== ENCOUNTER → 2023-07-22 10:52 | Outpatient (CLI) | payer MEDICARE, SELFPAY ==
[2023-07-22 11:57] LABS: Prothrombin Time 59.1 SECONDS (9.4-12.5)
[2023-07-22 12:13] LABS: INR 5.1 (0.9-1.3)
== END ==
LOC: LAB 10:53
PROVIDERS: PCP Internal Medicine; Referring Provider Internal Medicine; Visit Provider Internal Medicine
DX: I82.409 Acute embolism and thrombosis of unspecified deep veins of unspecified lower extremity (principal)
CPT/HCPCS: 36415; 85610

== ENCOUNTER → 2023-07-29 11:00 | Outpatient (CLI) | payer MEDICARE, SELFPAY ==
[2023-07-29 12:05] LABS: INR 2.4 (0.9-1.3)
== END ==
PROVIDERS: PCP Internal Medicine; Referring Provider Internal Medicine; Visit Provider Internal Medicine
DX: I82.409 Acute embolism and thrombosis of unspecified deep veins of unspecified lower extremity (principal)
CPT/HCPCS: 36415; 85610

== ENCOUNTER → 2023-08-12 13:56 | Outpatient (CLI) | payer MEDICARE, SELFPAY ==
[2023-08-12 14:13] LABS: INR 4.1 (0.9-1.3); Prothrombin Time 48.2 SECONDS (9.4-12.5)
== END ==
LOC: LAB 13:57
PROVIDERS: PCP Internal Medicine; Referring Provider Internal Medicine; Visit Provider Internal Medicine
DX: I82.409 Acute embolism and thrombosis of unspecified deep veins of unspecified lower extremity (principal)
CPT/HCPCS: 36415; 85610

== ENCOUNTER → 2023-08-19 11:59 | Outpatient (CLI) | payer MEDICARE, SELFPAY ==
[2023-08-19 12:53] LABS: INR 2.2 (0.9-1.3); Prothrombin Time 25.2 SECONDS (9.4-12.5)
== END ==
PROVIDERS: PCP Internal Medicine; Referring Provider Internal Medicine; Visit Provider Internal Medicine
DX: I82.409 Acute embolism and thrombosis of unspecified deep veins of unspecified lower extremity (principal)
CPT/HCPCS: 36415; 85610

== ENCOUNTER → 2023-09-10 09:59 | Outpatient (CLI) | payer MEDICARE, SELFPAY ==
[2023-09-10 11:59] LABS: Prothrombin Time 68.3 SECONDS (9.4-12.5)
[2023-09-10 13:42] LABS: INR 5.8 (0.9-1.3)
== END ==
PROVIDERS: PCP Internal Medicine; Referring Provider Internal Medicine; Visit Provider Internal Medicine
DX: I82.409 Acute embolism and thrombosis of unspecified deep veins of unspecified lower extremity (principal)
CPT/HCPCS: 36415; 85610

== ENCOUNTER → 2023-09-27 10:49 | Outpatient (CLI) | payer MEDICARE, SELFPAY ==
[2023-09-27 11:27] LABS: INR 2.9 (0.9-1.3); Prothrombin Time 33.7 SECONDS (9.4-12.5)
== END ==
PROVIDERS: PCP Internal Medicine; Referring Provider Internal Medicine; Visit Provider Internal Medicine
DX: I82.409 Acute embolism and thrombosis of unspecified deep veins of unspecified lower extremity (principal)
CPT/HCPCS: 36415; 85610

== ENCOUNTER → 2023-09-28 10:45 | Outpatient (CLI) | payer MEDICARE, SELFPAY ==
[2023-09-28 12:26] LABS: Add Manual Diff / Slide Review NO; Basophils Absolute Auto 0 /uL (0-100); Basophils Percent Auto 0.7 % (0-2); Eosinophils Absolute Auto 100 /uL (0-450); Eosinophils Percent Auto 1.1 % (2-4); Hematocrit 39.9 % (36-46); Hemoglobin 13.4 g/dL (12.0-16.0); Lymphocytes Absolute Auto 900 /uL (1100-4500); Lymphocytes Percent Auto 15.1 % (25-40); Mean Corpuscular HGB Conc 33.5 % (30-36); Mean Corpuscular Hemoglobin 31.5 PG (26-34); Mean Corpuscular Volume 93.9 fL (80-100); Monocytes Absolute Auto 500 /uL (0-900); Neutrophils Absolute Auto 4400 /uL (1500-7000); Neutrophils Percent Auto 74.1 % (50-75); Platelet Count 276 X10^3/uL (150-400); Red Blood Cell Count 4.25 X10^6/uL (4.0-5.2); Red Cell Distribution Width 14.7 % (11.6-14.8)
[2023-09-28 13:10] LABS: Alanine Aminotransferase 51 IU/L (<35); Albumin 3.9 g/dL (3.5-5.0); Albumin Globulin Ratio 1.3 (1.0-2.8); Alkaline Phosphatase 73 U/L (38-126); Aspartate Aminotransferase 47 IU/L (14-36); BUN Creatinine Ratio 23.5 (6-22); Bilirubin Total 0.6 mg/dL (0.2-1.3); Blood Urea Nitrogen 19 mg/dL (7-17); Calcium 9.6 mg/dL (8.4-10.2); Carbon Dioxide 26 mmol/L (22-32); Chloride 106 mmol/L (98-107); Cholesterol 199 mg/dL (140-199); Estimated Glomerular Filt Rate > 60 mL/min (>60); Globulin 3.1 g/dL (1.7-4.1); Glucose 110 mg/dL (80-110); HDL Cholesterol 72 mg/dL (40-60); HEMOLYSIS < 15 (0-50); LDL Cholesterol Calculated 107 mg/dL (<100); Potassium 4.5 mmol/L (3.4-5.1); Sodium 137 mmol/L (137-145); Triglycerides 99 mg/dL (35-150)
== END ==
LOC: LAB 10:46
PROVIDERS: PCP Internal Medicine; Referring Provider Internal Medicine; Visit Provider Internal Medicine
DX: I10 Essential (primary) hypertension (principal); E78.2 Mixed hyperlipidemia; D68.59 Other primary thrombophilia; R94.5 Abnormal results of liver function studies; Z79.01 Long term (current) use of anticoagulants
CPT/HCPCS: 36415; 80053; 80061; 85025

== ENCOUNTER → 2023-10-18 10:56 | Outpatient (CLI) | payer MEDICARE, SELFPAY ==
[2023-10-18 12:11] LABS: INR 3.8 (0.9-1.3)
== END ==
PROVIDERS: PCP Internal Medicine; Referring Provider Internal Medicine; Visit Provider Internal Medicine
DX: I82.409 Acute embolism and thrombosis of unspecified deep veins of unspecified lower extremity (principal)
CPT/HCPCS: 36415; 85610

== ENCOUNTER → 2023-11-02 11:09 | Outpatient (CLI) | payer MEDICARE, SELFPAY ==
[2023-11-02 12:00] LABS: INR 3.9 (0.9-1.3); Prothrombin Time 44.9 SECONDS (9.4-12.5)
== END ==
PROVIDERS: PCP Internal Medicine; Referring Provider Internal Medicine; Visit Provider Internal Medicine
DX: I82.409 Acute embolism and thrombosis of unspecified deep veins of unspecified lower extremity (principal)
CPT/HCPCS: 36415; 85610

== ENCOUNTER → 2023-11-22 10:24 | Outpatient (CLI) | payer MEDICARE, SELFPAY ==
[2023-11-22 11:37] LABS: INR 2.3 (0.9-1.3); Prothrombin Time 26.3 SECONDS (9.4-12.5)
== END ==
LOC: LAB 10:25
PROVIDERS: PCP Internal Medicine; Referring Provider Internal Medicine; Visit Provider Internal Medicine
DX: I82.409 Acute embolism and thrombosis of unspecified deep veins of unspecified lower extremity (principal)
CPT/HCPCS: 36415; 85610

== ENCOUNTER → 2023-12-07 10:29 | Outpatient (CLI) | payer MEDICARE, SELFPAY ==
[2023-12-07 12:35] LABS: INR 2.6 (0.9-1.3); Prothrombin Time 30.7 SECONDS (9.4-12.5)
== END ==
LOC: LAB 10:30
PROVIDERS: PCP Internal Medicine; Referring Provider Internal Medicine; Visit Provider Internal Medicine
DX: D68.59 Other primary thrombophilia (principal); Z79.01 Long term (current) use of anticoagulants; Z86.711 Personal history of pulmonary embolism
CPT/HCPCS: 36415; 85610

== ENCOUNTER → 2023-12-21 10:26 | Outpatient (CLI) | payer MEDICARE, SELFPAY ==
[2023-12-21 11:33] LABS: INR 2.9 (0.9-1.3); Prothrombin Time 33.7 SECONDS (9.4-12.5)
== END ==
PROVIDERS: PCP Internal Medicine; Referring Provider Internal Medicine; Visit Provider Internal Medicine
DX: Z79.01 Long term (current) use of anticoagulants (principal)
CPT/HCPCS: 36415; 85610

== ENCOUNTER → 2024-01-04 10:35 | Outpatient (CLI) | payer MEDICARE, SELFPAY ==
[2024-01-04 11:29] LABS: INR 2.6 (0.9-1.3); Prothrombin Time 30.1 SECONDS (9.4-12.5)
== END ==
LOC: LAB 10:37
PROVIDERS: PCP Internal Medicine; Referring Provider Internal Medicine; Visit Provider Internal Medicine
DX: D68.59 Other primary thrombophilia (principal); Z79.01 Long term (current) use of anticoagulants; Z86.711 Personal history of pulmonary embolism
CPT/HCPCS: 36415; 85610

== ENCOUNTER → 2024-01-18 10:18 | Outpatient (CLI) | payer MEDICARE, SELFPAY ==
[2024-01-18 11:11] LABS: INR 1.9 (0.9-1.3); Prothrombin Time 21.5 SECONDS (9.4-12.5)
== END ==
LOC: LAB 10:19
PROVIDERS: PCP Internal Medicine; Referring Provider Internal Medicine; Visit Provider Internal Medicine
DX: Z79.01 Long term (current) use of anticoagulants (principal); Z86.711 Personal history of pulmonary embolism
CPT/HCPCS: 36415; 85610

== ENCOUNTER → 2024-02-01 11:11 | Outpatient (CLI) | payer MEDICARE, SELFPAY ==
[2024-02-01 13:02] LABS: INR 2.7 (0.9-1.3); Prothrombin Time 30.8 SECONDS (9.4-12.5)
== END ==
PROVIDERS: PCP Internal Medicine; Referring Provider Internal Medicine; Visit Provider Internal Medicine
DX: Z79.01 Long term (current) use of anticoagulants (principal); D68.59 Other primary thrombophilia; Z86.711 Personal history of pulmonary embolism
CPT/HCPCS: 36415; 85610

== ENCOUNTER → 2024-02-23 10:41 | Outpatient (CLI) | payer MEDICARE, SELFPAY ==
[2024-02-23 12:37] LABS: INR 2.7 (0.9-1.3); Prothrombin Time 31.8 SECONDS (9.4-12.5)
== END ==
PROVIDERS: PCP Internal Medicine; Referring Provider Internal Medicine; Visit Provider Internal Medicine
DX: D68.59 Other primary thrombophilia (principal); Z86.711 Personal history of pulmonary embolism; Z79.01 Long term (current) use of anticoagulants
CPT/HCPCS: 36415; 85610

== ENCOUNTER → 2024-03-21 10:20 | Outpatient (CLI) | payer MEDICARE, SELFPAY ==
[2024-03-21 12:03] LABS: INR 2.6 (0.9-1.3); Prothrombin Time 29.8 SECONDS (9.4-12.5)
== END ==
PROVIDERS: PCP Internal Medicine; Referring Provider Internal Medicine; Visit Provider Internal Medicine
DX: Z79.01 Long term (current) use of anticoagulants (principal); D68.59 Other primary thrombophilia; Z86.711 Personal history of pulmonary embolism
CPT/HCPCS: 36415; 85610

== ENCOUNTER → 2024-04-11 09:59 | Outpatient (CLI) | payer MEDICARE, SELFPAY ==
[2024-04-11 11:08] LABS: INR 2.4 (0.9-1.3); Prothrombin Time 28.3 SECONDS (9.4-12.5)
== END ==
PROVIDERS: PCP Internal Medicine; Referring Provider Internal Medicine; Visit Provider Internal Medicine
DX: Z79.01 Long term (current) use of anticoagulants (principal); Z86.711 Personal history of pulmonary embolism
CPT/HCPCS: 36415; 85610

== ENCOUNTER → 2024-05-03 11:01 | Outpatient (CLI) | payer MEDICARE, SELFPAY ==
[2024-05-03 12:11] LABS: INR 2.3 (0.9-1.3); Prothrombin Time 26.3 SECONDS (9.4-12.5)
== END ==
LOC: LAB 11:02
PROVIDERS: PCP Internal Medicine; Referring Provider Internal Medicine; Visit Provider Internal Medicine
DX: Z79.01 Long term (current) use of anticoagulants (principal)
CPT/HCPCS: 36415; 85610

== ENCOUNTER → 2024-05-23 17:09 | Outpatient (CLI) | payer MEDICARE, SELFPAY ==
[2024-05-23 21:08] LABS: Influenza A - CEPHEID Flu A NEGATIVE (NEGATIVE); Influenza B - CEPHEID Flu B NEGATIVE (NEGATIVE); Respiratory Syncytial Virus Negative (Negative)
[2024-05-23 21:15] LABS: COVID-19 CEPHEID 4-PLEX PCR Negative (Negative)
== END ==
PROVIDERS: PCP Internal Medicine; Visit Provider Physician Assistant
DX: J06.9 Acute upper respiratory infection, unspecified (principal); R05.9 Cough, unspecified
CPT/HCPCS: 0241U

== ENCOUNTER → 2024-05-24 13:55 | Outpatient (CLI) | payer MEDICARE, SELFPAY | PROVIDERS: PCP Internal Medicine; Visit Provider Student in an Organized Health Care Education/Training Program | DX: R30.0 Dysuria (principal); N39.0 Urinary tract infection, site not specified; R31.9 Hematuria, unspecified | CPT/HCPCS: 87077; 87086; 87186 ==

== ENCOUNTER → 2024-05-25 10:54 | Outpatient (CLI) | payer MEDICARE, SELFPAY ==
[2024-05-25 11:55] LABS: INR 2.8 (0.9-1.3); Prothrombin Time 31.3 SECONDS (9.4-12.5)
== END ==
PROVIDERS: PCP Internal Medicine; Referring Provider Internal Medicine; Visit Provider Internal Medicine
DX: Z86.711 Personal history of pulmonary embolism (principal); Z79.01 Long term (current) use of anticoagulants
CPT/HCPCS: 36415; 85610

== ENCOUNTER → 2024-06-01 10:43 | Outpatient (CLI) | payer MEDICARE, SELFPAY ==
[2024-06-01 12:08] LABS: Prothrombin Time 33.2 SECONDS (9.4-12.5)
== END ==
PROVIDERS: PCP Internal Medicine; Referring Provider Internal Medicine; Visit Provider Internal Medicine
DX: Z86.711 Personal history of pulmonary embolism (principal)
CPT/HCPCS: 36415; 85610

== ENCOUNTER → 2024-06-06 11:35 | Outpatient (CLI) | payer MEDICARE, SELFPAY ==
[2024-06-07 17:27] LABS: Bacteria Urine Few (2-10); RBC Urine >100/HPF (0-5/HPF); Squamous Epithelial Cell Urine 0-1 /HPF (0-5/HPF); Urine Volume 10mL (spun); WBC Urine 10-30/HPF (0-5/HPF)
== END ==
PROVIDERS: PCP Internal Medicine; Visit Provider Physician Assistant Medical
DX: R30.0 Dysuria (principal); N30.01 Acute cystitis with hematuria
CPT/HCPCS: 81015; 87077; 87086; 87186

== ENCOUNTER → 2024-06-08 11:29 | Outpatient (CLI) | payer MEDICARE, SELFPAY ==
[2024-06-08 12:39] LABS: INR 2.2 (0.9-1.3); Prothrombin Time 24.2 SECONDS (9.4-12.5)
== END ==
LOC: LAB 11:32
PROVIDERS: PCP Internal Medicine; Referring Provider Internal Medicine; Visit Provider Internal Medicine
DX: Z86.711 Personal history of pulmonary embolism (principal); Z79.01 Long term (current) use of anticoagulants
CPT/HCPCS: 36415; 85610

== ENCOUNTER → 2024-06-22 10:29 | Outpatient (CLI) | payer MEDICARE, SELFPAY ==
[2024-06-22 11:04] LABS: INR 3.5 (0.9-1.3); Prothrombin Time 38.7 SECONDS (9.4-12.5)
== END ==
PROVIDERS: PCP Internal Medicine; Referring Provider Internal Medicine; Visit Provider Internal Medicine
DX: D68.59 Other primary thrombophilia (principal); Z86.711 Personal history of pulmonary embolism; Z79.01 Long term (current) use of anticoagulants
CPT/HCPCS: 36415; 85610

== ENCOUNTER → 2024-06-29 10:41 | Outpatient (CLI) | payer MEDICARE, SELFPAY ==
[2024-06-29 12:34] LABS: INR 2.7 (0.9-1.3); Prothrombin Time 30.2 SECONDS (9.4-12.5)
== END ==
PROVIDERS: PCP Internal Medicine; Referring Provider Internal Medicine; Visit Provider Internal Medicine
DX: Z79.01 Long term (current) use of anticoagulants (principal); D68.59 Other primary thrombophilia; Z86.711 Personal history of pulmonary embolism
CPT/HCPCS: 36415; 85610

== ENCOUNTER → 2024-07-06 10:22 | Outpatient (CLI) | payer MEDICARE, SELFPAY ==
[2024-07-06 11:45] LABS: Prothrombin Time 32.6 SECONDS (9.4-12.5)
== END ==
PROVIDERS: PCP Internal Medicine; Referring Provider Internal Medicine; Visit Provider Internal Medicine
DX: Z79.01 Long term (current) use of anticoagulants (principal); Z86.711 Personal history of pulmonary embolism
CPT/HCPCS: 36415; 85610

== ENCOUNTER → 2024-07-18 10:24 | Outpatient (CLI) | payer MEDICARE, SELFPAY ==
[2024-07-18 11:08] LABS: INR 2.8 (0.9-1.3); Prothrombin Time 30.5 SECONDS (9.4-12.5)
== END ==
PROVIDERS: PCP Internal Medicine; Referring Provider Internal Medicine; Visit Provider Internal Medicine
DX: Z79.01 Long term (current) use of anticoagulants (principal); D68.59 Other primary thrombophilia; Z86.711 Personal history of pulmonary embolism
CPT/HCPCS: 36415; 85610

== ENCOUNTER → 2024-08-02 11:03 | Outpatient (CLI) | payer MEDICARE, SELFPAY ==
[2024-08-02 12:20] LABS: INR 2.8 (0.9-1.3); Prothrombin Time 30.7 SECONDS (9.4-12.5)
== END ==
LOC: LAB 11:06
PROVIDERS: PCP Internal Medicine; Referring Provider Internal Medicine; Visit Provider Internal Medicine
DX: Z86.711 Personal history of pulmonary embolism (principal); Z79.01 Long term (current) use of anticoagulants
CPT/HCPCS: 36415; 85610

== ENCOUNTER → 2024-08-18 12:08 | Outpatient (CLI) | payer MEDICARE, SELFPAY ==
[2024-08-18 13:38] LABS: INR 3.6 (0.9-1.3); Prothrombin Time 39.4 SECONDS (9.4-12.5)
== END ==
LOC: LAB 12:09
PROVIDERS: PCP Internal Medicine; Referring Provider Internal Medicine; Visit Provider Internal Medicine
DX: D68.59 Other primary thrombophilia (principal); Z79.01 Long term (current) use of anticoagulants; Z86.711 Personal history of pulmonary embolism
CPT/HCPCS: 36415; 85610

== ENCOUNTER → 2024-08-24 10:44 | Outpatient (CLI) | payer MEDICARE, SELFPAY ==
[2024-08-24 11:45] LABS: INR 2.3 (0.9-1.3)
== END ==
LOC: LAB 10:47
PROVIDERS: PCP Internal Medicine; Referring Provider Internal Medicine; Visit Provider Internal Medicine
DX: Z86.711 Personal history of pulmonary embolism (principal); Z79.01 Long term (current) use of anticoagulants
CPT/HCPCS: 36415; 85610

== ENCOUNTER → 2024-08-31 11:03 | Outpatient (CLI) | payer MEDICARE, SELFPAY ==
[2024-08-31 12:13] LABS: INR 2.9 (0.9-1.3); Prothrombin Time 32.1 SECONDS (9.4-12.5)
== END ==
LOC: LAB 11:04
PROVIDERS: PCP Internal Medicine; Referring Provider Internal Medicine; Visit Provider Internal Medicine
DX: Z79.01 Long term (current) use of anticoagulants (principal)
CPT/HCPCS: 36415; 85610

== ENCOUNTER → 2024-09-14 10:31 | Outpatient (CLI) | payer MEDICARE, SELFPAY ==
[2024-09-14 11:03] LABS: INR 2.5 (0.9-1.3); Prothrombin Time 27.8 SECONDS (9.4-12.5)
== END ==
LOC: LAB 10:32
PROVIDERS: PCP Internal Medicine; Referring Provider Internal Medicine; Visit Provider Internal Medicine
DX: Z86.711 Personal history of pulmonary embolism (principal); Z79.01 Long term (current) use of anticoagulants
CPT/HCPCS: 36415; 85610

== ENCOUNTER → 2024-10-05 10:20 | Outpatient (CLI) | payer MEDICARE, SELFPAY ==
[2024-10-05 11:07] LABS: Add Manual Diff / Slide Review NO; Basophils Absolute Auto 0 /uL (0-100); Basophils Percent Auto 1.1 % (0-2); Eosinophils Absolute Auto 100 /uL (0-450); Eosinophils Percent Auto 1.8 % (2-4); Hematocrit 40.5 % (36-46); Hemoglobin 13.7 g/dL (12.0-16.0); Lymphocytes Absolute Auto 700 /uL (1100-4500); Lymphocytes Percent Auto 15.1 % (25-40); Mean Corpuscular HGB Conc 33.7 % (30-36); Mean Corpuscular Volume 95.1 fL (80-100); Monocytes Absolute Auto 500 /uL (0-900); Monocytes Percent Auto 11.1 % (3-14); Neutrophils Absolute Auto 3200 /uL (1500-7000); Neutrophils Percent Auto 70.9 % (50-75); Platelet Count 206 X10^3/uL (150-400); Red Blood Cell Count 4.26 X10^6/uL (4.0-5.2); Red Cell Distribution Width 13.4 % (11.6-14.8); White Blood Cell Count 4.5 X10^3/uL (4.5-11.0)
[2024-10-05 11:39] LABS: INR 1.8 (0.9-1.3); Prothrombin Time 20.3 SECONDS (9.4-12.5)
[2024-10-05 11:49] LABS: Alanine Aminotransferase 31 IU/L (<35); Albumin Globulin Ratio 1.3 (1.0-2.8); Alkaline Phosphatase 75 U/L (38-126); Aspartate Aminotransferase 39 IU/L (14-36); BUN Creatinine Ratio 20.8 (6-22); Bilirubin Total 0.7 mg/dL (0.2-1.3); Blood Urea Nitrogen 15 mg/dL (7-17); Calcium 9.4 mg/dL (8.4-10.2); Carbon Dioxide 27 mmol/L (22-32); Chloride 106 mmol/L (98-107); Cholesterol 208 mg/dL (140-199); Estimated Glomerular Filt Rate > 60 mL/min (>60); Glucose 115 mg/dL (80-110); HDL Cholesterol 59 mg/dL (40-60); HEMOLYSIS < 15 (0-50); LDL Cholesterol Calculated 132 mg/dL (<100); Potassium 4.5 mmol/L (3.4-5.1); Sodium 139 mmol/L (137-145); Triglycerides 84 mg/dL (35-150)
== END ==
LOC: LAB 10:22
PROVIDERS: PCP Internal Medicine; Referring Provider Internal Medicine; Visit Provider Internal Medicine
DX: E78.2 Mixed hyperlipidemia (principal); D68.59 Other primary thrombophilia; I10 Essential (primary) hypertension; Z86.711 Personal history of pulmonary embolism; Z79.01 Long term (current) use of anticoagulants
CPT/HCPCS: 36415; 80053; 80061; 85025; 85610

== ENCOUNTER → 2024-10-26 11:29 | Outpatient (CLI) | payer MEDICARE, SELFPAY ==
[2024-10-26 12:34] LABS: INR 2.3 (0.9-1.3); Prothrombin Time 25.6 SECONDS (9.4-12.5)
== END ==
PROVIDERS: PCP Internal Medicine; Referring Provider Internal Medicine; Visit Provider Internal Medicine
DX: Z79.01 Long term (current) use of anticoagulants (principal); Z86.711 Personal history of pulmonary embolism
CPT/HCPCS: 36415; 85610

== ENCOUNTER → 2024-11-11 10:44 | Outpatient (CLI) | payer MEDICARE, SELFPAY | PROVIDERS: PCP Internal Medicine; Visit Provider Physician Assistant Surgical | DX: R30.0 Dysuria (principal) | CPT/HCPCS: 87077; 87086 ==

== ENCOUNTER → 2024-11-16 11:20 | Outpatient (CLI) | payer MEDICARE, SELFPAY ==
[2024-11-16 12:12] LABS: INR 2.8 (0.9-1.3); Prothrombin Time 30.6 SECONDS (9.4-12.5)
== END ==
PROVIDERS: PCP Internal Medicine; Referring Provider Internal Medicine; Visit Provider Internal Medicine
DX: Z79.01 Long term (current) use of anticoagulants (principal)
CPT/HCPCS: 36415; 85610

== ENCOUNTER → 2024-12-07 14:28 | Outpatient (CLI) | payer MEDICARE, SELFPAY ==
[2024-12-07 16:04] LABS: INR 2.8 (0.9-1.3); Prothrombin Time 31.1 SECONDS (9.4-12.5)
== END ==
PROVIDERS: PCP Internal Medicine; Referring Provider Internal Medicine; Visit Provider Internal Medicine
DX: Z79.01 Long term (current) use of anticoagulants (principal); Z86.711 Personal history of pulmonary embolism
CPT/HCPCS: 36415; 85610

== ENCOUNTER 2024-12-09 13:25 | Emergency (ER) | payer MEDICARE, SELFPAY ==
[2024-12-09] VITALS (13 sets, daily range): BP systolic 141–200; BP diastolic 76–96; PULSE 64–76; RESP 24; TEMP 36.6; O2SAT 95–99; BMI 22.4
[2024-12-09 13:38] LABS: Add Manual Diff / Slide Review NO; Basophils Absolute Auto 0 /uL (0-100); Basophils Percent Auto 0.5 % (0-2); Eosinophils Absolute Auto 100 /uL (0-450); Eosinophils Percent Auto 1.7 % (2-4); Hematocrit 41.5 % (36-46); Hemoglobin 13.8 g/dL (12.0-16.0); Lymphocytes Absolute Auto 900 /uL (1100-4500); Lymphocytes Percent Auto 16.3 % (25-40); Mean Corpuscular HGB Conc 33.1 % (30-36); Mean Corpuscular Hemoglobin 31.7 PG (26-34); Mean Corpuscular Volume 95.5 fL (80-100); Monocytes Absolute Auto 600 /uL (0-900); Monocytes Percent Auto 11.4 % (3-14); Neutrophils Absolute Auto 3900 /uL (1500-7000); Neutrophils Percent Auto 70.1 % (50-75); Platelet Count 238 X10^3/uL (150-400); Red Blood Cell Count 4.34 X10^6/uL (4.0-5.2); Red Cell Distribution Width 13.7 % (11.6-14.8); White Blood Cell Count 5.6 X10^3/uL (4.5-11.0)
--- NOTE | 2024-12-09 13:41 | DI.CT.S_ITS ---
PROCEDURE: CT ABDOMEN PELVIS W CON INDICATIONS: RLQ pain TECHNIQUE: After the administration of intravenous contrast, axial sections acquired from the lung bases to the pubic symphysis. Coronal and sagittal reformats were performed. For radiation dose reduction, the following was used: automated exposure control, adjustment of mA and/or kV according to patient size. COMPARISON: None. FINDINGS: Image quality: Diagnostic. Lower Chest: No significant findings. ABDOMEN: Liver: No solid mass. Focal fat adjacent to the falciform ligament. Gallbladder: No radiopaque gallstones or wall thickening. Biliary ducts: No biliary dilation. Pancreas: No ductal dilation. Pancreatic divisum. Spleen: Size is within normal limits. Adrenal Glands: No adrenal nodules. Kidneys and Ureters: Obstructing 4 mm stone in the right UVJ, resulting in moderate hydronephrosis, hydroureter and decreased renal enhancement. Stomach and Bowel: Normal colonic caliber, without significant wall thickening. Fecal debris within the small bowel, possibly small intestinal bacterial overgrowth. Colonic diverticulosis without evidence of diverticulitis. Peritoneum: No abnormal intraperitoneal fluid. No free air. Ventral Wall: No significant ventral hernia. Abdominal Nodes: No retroperitoneal or mesenteric adenopathy by size criteria. Vessels: Aorta and inferior vena cava are normal in size. PELVIS: Pelvic Organs: Unremarkable. Bladder: No bladder wall thickening, accounting for underdistention. Pelvic Nodes: No enlarged lymph nodes. Miscellaneous: No inguinal hernias are seen. Bones: No aggressive osseous abnormality. Degenerative disc disease of the lumbar spine. IMPRESSION: Obstructing 4 mm stone in the right UVJ, resulting in moderate hydronephrosis and delayed nephrogram. Colonic diverticulosis without evidence of diverticulitis. Dictated by: Atilio Iverson M.D. on 12/09/2024 at 15:58 Approved by: Atilio Iverson M.D. on 12/09/2024 at 15:59
[2024-12-09 13:50] LABS: Alanine Aminotransferase 36 IU/L (<35); Albumin 4.5 g/dL (3.5-5.0); Albumin Globulin Ratio 1.3 (1.0-2.8); Alkaline Phosphatase 86 U/L (38-126); Aspartate Aminotransferase 44 IU/L (14-36); BUN Creatinine Ratio 22.7 (6-22); Bilirubin Total 0.7 mg/dL (0.2-1.3); Blood Urea Nitrogen 20 mg/dL (7-17); Calcium 9.6 mg/dL (8.4-10.2); Carbon Dioxide 23 mmol/L (22-32); Chloride 103 mmol/L (98-107); Estimated Glomerular Filt Rate > 60 mL/min (>60); Globulin 3.5 g/dL (1.7-4.1); Glucose 121 mg/dL (70-99); HEMOLYSIS < 15 (0-50); Lipase 139 U/L (23-300); Sodium 137 mmol/L (137-145)
--- NOTE | 2024-12-09 14:02 | PC.NURSE ---
Dr Conway gave written order order for 15 mg toradol, this RN put the order in see MAR
[2024-12-09] MEDS: KETOROLAC 30 MG/ML VIAL 15 MG IV (14:16)
[2024-12-09 14:47] LABS: Bacteria Urine Occasional (0-1); RBC Urine 10-30/HPF (0-5/HPF); Squamous Epithelial Cell Urine 0-1 /HPF (0-5/HPF); Urine Volume 10mL (spun); WBC Urine 1-5/HPF (0-5/HPF)
[2024-12-09 14:48] LABS: Culture Indicated Urine Cult Not Indicated
--- NOTE | 2024-12-09 16:08 | ED.ABDPAIN ---
HPI - Abdominal Pain General Chief Complaint: Abdominal Pain Stated Complaint: lower r quad abdominal pain Time Seen by Provider: 12/09/24 13:41 Source: patient Mode of arrival: Wheelchair History of Present Illness HPI narrative: 79-year-old female with history of PE and hypercoagulable state on chronic warfarin oral anticoagulation, complains of right lower quadrant nontraumatic pain since this morning, no nausea or vomiting. No fevers or chills. No diarrhea. No history of previous appendectomy. No painful urination but some sense that she might need to urinate. No diarrhea. No black or red stools. She has not tried any treatments for this. She went to walk-in clinic and was referred over here for further evaluation. Related Data Home Medications Medication Instructions Recorded Confirmed Fish Oil (#OMEGA 3) 1,000 mg PO Q DAY ##0 11/26/11 11/11/24 coenzyme Q10 100 mg capsule 100 mg PO DAILY 09/06/18 11/11/24 Glucosamine Chondroitin 3 tab PO DAILY 08/17/19 11/11/24 apple cider vinegar 500 mg tablet See Rx Instructions PO DAILY 08/17/19 11/11/24 Multivitamin 1 packet PO BID 10/10/20 11/11/24 Biotin 1 cap PO DAILY 11/03/22 11/11/24 Previous Rx's Medication Instructions Recorded triamcinolone acetonide 0.1 % 1 applic topical QID #80 grams 10/10/20 topical cream alprazolam 0.25 mg tablet 0.25 mg PO BEDTIME PRN anxiety #10 01/21/22 tabs cyclobenzaprine 5 mg tablet 5 mg PO TID PRN muscle spasm #30 08/12/23 tabs simvastatin 40 mg tablet See Rx Instructions .Route 12/14/23 .COMPLEX #90 tabs lisinopril 40 mg tablet 40 mg PO DAILY #90 tabs 02/24/24 warfarin 4 mg tablet 6 mg PO .COMPLEX #147 tabs 05/04/24 fluticasone propionate 50 1 spray intranasal DAILY #16 grams 05/23/24 mcg/actuation nasal spray,suspension (Flonase Allergy Relief) omeprazole 20 mg capsule,delayed 40 mg (2 x 20 mg) PO DAILY #180 10/30/24 release caps hydrocodone 5 mg-acetaminophen 325 1 tab PO Q6H PRN pain #14 tabs 12/09/24 mg tablet naproxen 500 mg tablet 500 mg PO BID 7 days #14 tabs 12/09/24 tamsulosin 0.4 mg capsule 0.4 mg PO DAILY #30 caps 12/09/24 Allergies Allergy/AdvReac Type Severity Reaction Status Date / Time acetaminophen Allergy Unknown Verified 11/11/24 10:47 [From [facility] with Codeine] codeine Allergy Unknown Verified 11/11/24 10:47 [From [facility] with Codeine] hydrocodone [HYDROCODONE] AdvReac Mild NAUSEA Verified 11/11/24 10:47 oxycodone [OXYCODONE] AdvReac Mild NAUSEA Verified 11/11/24 10:47 Patient History Medical History (Updated 12/09/24 @ 18:19 by Isiah Conway MD) UTI (urinary tract infection) Fracture of distal end of right fibula Fatty infiltration of liver Abnormal LFTs Chronic epigastric pain (2003) Pulmonary embolism DVT (deep venous thrombosis) Chronic venous insufficiency (01/23/16) Osteopenia (01/23/16) History of pulmonary embolism (11/02/13) jail current use of anticoagulant therapy (12/07/12) Essential hypertension Hypercoagulable state Mixed hyperlipidemia Surgical History History of exploratory laparotomy (2003) History of ERCP (2003) Status post endoscopy (09/18/13) Status post colonoscopy (09/18/13) Status post breast biopsy (09/14/95) Family History Brother Type II diabetes mellitus Sister Type II diabetes mellitus Unknown COPD (chronic obstructive pulmonary disease) Mother Hypertension Social History marital status: household members: spouse occupational status: employed Smoking Status: Never smoker alcohol intake: current substance use type: does not use Smoking Status: Never smoker alcohol intake frequency: 0-2 drinks per day Alcohol type: wine Exam Narrative Exam Narrative: GENERAL: Well-developed patient, in mild distress. HEAD: Atraumatic. Normocephalic. EYES: Pupils equal round and reactive. Extraocular motions intact. No scleral icterus. No injection or drainage. ENT: Nose without bleeding, purulent drainage. Throat without erythema, tonsillar hypertrophy or exudate. Airway patent. NECK: Trachea midline. Non tender CARDIOVASCULAR: Regular rate and rhythm without murmurs, gallops, or rubs. RESPIRATORY: Clear to auscultation. Breath sounds equal bilaterally. No wheezes, rales, or rhonchi. GASTROINTESTINAL: Abdomen soft, non-tender, nondistended. EXTREMITIES: No edema or joint tenderness. BACK: Nontender without deformity or crepitance. No flank tenderness. NEURO: AOx3. Motor functions grossly nonfocal SKIN: No rash or erythema of visible areas Initial Vital Signs Initial Vital Signs: Vital Signs Temperature 98 F 12/09/24 13:25 Pulse Rate 76 12/09/24 13:25 Respiratory Rate 24 12/09/24 13:25 Blood Pressure 141/96 H 12/09/24 13:25 Pulse Oximetry 99 12/09/24 13:25 Oxygen Delivery Method Room Air 12/09/24 13:25 Course Orders Ordered: ED Orders 12/09/24 13:30 Complete Blood Count AUTO DIFF Stat Comprehensive Metabolic Panel Stat Lipase Stat 12/09/24 13:41 CT abdomen pelvis w con Stat 12/09/24 14:05 Urine Microscopic Stat Discontinued Medications Ketorolac Tromethamine (Ketorolac 30 Mg/Ml Vial) 15 mg IV NOW ONE Stop: 12/09/24 14:03 Last Admin: 12/09/24 14:16 Dose: 15 mg Documented By: REANNA Ondansetron HCl (Ondansetron 4 Mg/2 Ml Inj) 4 mg IV NOW PRN PRN Reason: Nausea And Vomiting Ondansetron HCl (Ondansetron 4 Mg Odt) 4 mg PO NOW PRN PRN Reason: Nausea And Vomiting Vital Signs Vital signs: Vital Signs - 8 hr 12/09/24 13:25 12/09/24 15:16 12/09/24 15:17 Temperature 98 F Pulse Rate 76 68 Respiratory Rate 24 Blood Pressure 141/96 H 189/86 H Pulse Oximetry 99 95 Oxygen Delivery Method Room Air 12/09/24 15:17 12/09/24 15:30 12/09/24 15:30 Temperature Pulse Rate 67 69 Respiratory Rate Blood Pressure 170/76 H Pulse Oximetry 96 95 Oxygen Delivery Method 12/09/24 16:00 12/09/24 16:30 12/09/24 17:00 Temperature Pulse Rate 72 69 67 Respiratory Rate Blood Pressure Pulse Oximetry 95 97 97 Oxygen Delivery Method 12/09/24 17:03 12/09/24 17:03 12/09/24 17:15 Temperature Pulse Rate 74 68 Respiratory Rate Blood Pressure 200/84 H Pulse Oximetry 96 97 Oxygen Delivery Method 12/09/24 17:15 12/09/24 17:30 12/09/24 17:30 Temperature Pulse Rate 69 Respiratory Rate Blood Pressure 153/81 H 158/84 H Pulse Oximetry 96 Oxygen Delivery Method 12/09/24 17:45 12/09/24 17:45 12/09/24 18:00 Temperature Pulse Rate 73 67 Respiratory Rate Blood Pressure 160/84 H Pulse Oximetry 96 96 Oxygen Delivery Method 12/09/24 18:15 12/09/24 18:15 Temperature Pulse Rate 64 Respiratory Rate Blood Pressure 169/79 H Pulse Oximetry 95 Oxygen Delivery Method MDM - Abdominal Pain Lab Data Lab results narrative: White blood cell count 5600, hemoglobin 13.8, platelets 238,000. Glucose 121. Remainder of BNP unremarkable. UA negative. 12/09/24 13:30 12/09/24 13:30 Labs: Lab Results 12/09/24 12/09/24 Range/Units 13:30 14:05 WBC 5.6 (4.5-11.0) X10^3/uL RBC 4.34 (4.0-5.2) X10^6/uL Hgb 13.8 (12.0-16.0) g/dL Hct 41.5 (36-46) % MCV 95.5 (80-100) fL MCH 31.7 (26-34) PG MCHC 33.1 (30-36) % RDW 13.7 (11.6-14.8) % Plt Count 238 (150-400) X10^3/uL Neut % (Auto) 70.1 (50-75) % Lymph % (Auto) 16.3 L (25-40) % [place] % (Auto) 11.4 (3-14) % Eos % (Auto) 1.7 L (2-4) % Baso % (Auto) 0.5 (0-2) % Neut # (Auto) 3900 (6215-8749) /uL Lymph # (Auto) 900 L (4181-7910) /uL [place] # (Auto) 600 (0-900) /uL Eos # (Auto) 100 (0-450) /uL Baso # (Auto) 0 (0-100) /uL Sodium 137 (137-145) mmol/L Potassium 4.0 (3.4-5.1) mmol/L Chloride 103 (98-107) mmol/L Carbon Dioxide 23 (22-32) mmol/L BUN 20 H (7-17) mg/dL Creatinine 0.88 (0.52-1.04) mg/dL Estimated GFR > 60 (>60) mL/min BUN/Creatinine Ratio 22.7 H (6-22) Glucose 121 H (70-99) mg/dL Calcium 9.6 (8.4-10.2) mg/dL Total Bilirubin 0.7 (0.2-1.3) mg/dL AST 44 H (14-36) IU/L ALT 36 H (<35) IU/L Alkaline Phosphatase 86 (38-126) U/L Total Protein 8.0 (6.3-8.2) g/dL Albumin 4.5 (3.5-5.0) g/dL Globulin 3.5 (1.7-4.1) g/dL Albumin/Globulin Ratio 1.3 (1.0-2.8) Lipase 139 (23-300) U/L Urine RBC 10-30/hpf H (0-5/HPF) Urine WBC 1-5/hpf (0-5/HPF) Ur Squamous Epith Cells 0-1 /hpf (0-5/HPF) Urine Bacteria Occasional (0-1) (None) Ur Culture Indicated? Cult not indicated Vol Urine Centrifuged 10ml (spun) Point of care testing: Urine Dip Bedside Urine Glucose Negative Bedside Urine Bilirubin - Negative Bedside Urine Ketone - Negative Urine Specific [place] 1.010 Bedside Urine Occult Blood +++ Bedside Urine pH 6.5 Bedside Urine Protein - Negative Bedside Urine Urobilinogen - Negative Bedside Urine Nitrite - Negative Bedside Urine Leukocytes - Negative Esterase MDM Narrative Medical decision making narrative: 79-year-old female with nontraumatic right lower quadrant pain, no tenderness on exam, referred from walk-in clinic. Afebrile, sirs screen negative. Labs pending. DDx consider ureteral stone, UTI, seems atypical for appendicitis or colitis without anterior tenderness, consider equity research associate etiology, other. CT abdomen and pelvis ordered. IV Toradol ordered from triage. CT abdomen and pelvis shows right-sided 4 mm ureteral stone. See radiology report. Pain resolved. Report printed in handed to patient with discussion. Further treatment and follow up as an outpatient for now. Given local urology contact information. We will send prescriptions for analgesic opiates and tamsulosin to hopefully facilitate expulsion if helpful. Avoid further NSAIDs, history of warfarin anticoagulation noted, increased risks GIB. Contact information provided for local urology offices. DC home with family. Return precautions discussed. Discharge Plan Departure Patient Disposition: Home Clinical Impression: Calculus of distal right ureter Activity Restrictions/Additional Instructions: Nontraumatic right lower quadrant abdominal pain since this morning. CT scanning showed presence of a 4 mm distal stone in the ureter that likely accounts for your symptoms. No obvious urine infection by urine testing. IV Toradol given with improvement of pain. Consider hydrocodone/acetaminophen for control of pain. Since you are on warfarin chronic anticoagulation it might be prudent to avoid any further NSAIDs that might bother her stomach and lead to gastrointestinal bleeding. Consider trial of Flomax/tamsulosin to see if it helps expel the stone. Follow up with local urology clinic this next week. Return to this/nearest emergency department for any change worsening symptoms or any concerns prior. (we discussed naproxen and I send a prescription, however I realize that you are on warfarin, it is likely prudent to not take any naproxen said it does not bother your stomach lining, creating increased risk of bleeding on warfarin anticoagulation) Prescriptions: New naproxen 500 mg tablet 500 mg PO BID 7 Days Qty: 14 0RF tamsulosin 0.4 mg capsule 0.4 mg PO DAILY Qty: 30 0RF hydrocodone-acetaminophen 5-325 mg tablet 1 tab PO Q6H PRN (Reason: pain) Qty: 14 0RF No Action Fish Oil (#OMEGA 3) 1,000 mg PO Q DAY Qty: 0 cyclobenzaprine 5 mg tablet 5 mg PO TID PRN (Reason: muscle spasm) Qty: 30 0RF simvastatin 40 mg tablet See Rx Instructions .ROUTE .COMPLEX Qty: 90 3RF Dose Instruction: TAKE 1 TABLET(40 MG) BY MOUTH DAILY AT BEDTIME Rx Instructions: TAKE 1 TABLET(40 MG) BY MOUTH DAILY AT BEDTIME lisinopril 40 mg tablet 40 mg PO DAILY Qty: 90 3RF warfarin 4 mg tablet 6 mg PO .COMPLEX Qty: 147 3RF Protocol: Dose Management Condition: Wednesday Dose/Route: 6 mg Instruction: 1.5 x 4 mg tablets Condition: Wednesday Dose/Route: 6 mg Instruction: 1.5 x 4 mg tablets Condition: Wednesday Dose/Route: 6 mg Instruction: 1.5 x 4 mg tablets Condition: Wednesday Dose/Route: 6 mg Instruction: 1.5 x 4 mg tablets Condition: Dose/Route: 6 mg Instruction: 1.5 x 4 mg tablets Condition: Wednesday Dose/Route: 6 mg Instruction: 1.5 x 4 mg tablets Condition: Wednesday Dose/Route: 6 mg Instruction: 1.5 x 4 mg tablets Protocol Text: Adjustment Start Date: Wednesday12/08/24 INR Value: 2.8 INR Date: 12/07/24 Recheck Date: 01/05/25 Rx Instructions: Take 6mg daily; or as directed. omeprazole 20 mg capsule,delayed release(DR/EC) 40 mg PO DAILY Qty: 180 1RF Biotin 5,000 mcg 1 cap PO DAILY fluticasone propionate [Flonase Allergy Relief] 50 mcg/actuation spray,suspension 1 spray intranasal DAILY Qty: 16 0RF Rx Instructions: administer into each nostril coenzyme Q10 100 mg capsule 100 mg PO DAILY Glucosamine Chondroitin 3 tab PO DAILY apple cider vinegar 500 mg tablet See Rx Instructions PO DAILY Rx Instructions: 2 TABS IN THE MORNING 2 TAB IN THE EVENING PO daily; Multivitamin 1 packet PO BID triamcinolone acetonide 0.1 % cream 1 applic topical QID Qty: 80 0RF alprazolam 0.25 mg tablet 0.25 mg PO BEDTIME PRN (Reason: anxiety) Qty: 10 0RF Referrals: José Miguel Hunt DO [Physician] - Arash Garcia MD [Primary Care Provider] - Arun Vergara MD [Physician] - Stand Alone Forms: Patient Portal/API/Survey
== END 2024-12-09 18:30 | disposition home or self-care (01) ==
PROVIDERS: Emergency Provider Emergency Medicine; PCP Internal Medicine
DX: N20.1 Calculus of ureter (principal)
CPT/HCPCS: 74177; 80053; 81003; 81015; 83690; 85025; 96374; 99283; 99284; J1885; Q9967

== ENCOUNTER → 2024-12-28 11:39 | Outpatient (CLI) | payer MEDICARE, SELFPAY ==
[2024-12-28 12:49] LABS: INR 3.9 (0.9-1.3); Prothrombin Time 42.8 SECONDS (9.4-12.5)
== END ==
PROVIDERS: PCP Internal Medicine; Referring Provider Internal Medicine; Visit Provider Internal Medicine
DX: D68.59 Other primary thrombophilia (principal); Z79.01 Long term (current) use of anticoagulants; Z86.711 Personal history of pulmonary embolism
CPT/HCPCS: 36415; 85610

== ENCOUNTER → 2025-01-01 15:34 | Outpatient (CLI) | payer MEDICARE, SELFPAY ==
[2025-01-01 17:39] LABS: INR 1.5 (0.9-1.3); Prothrombin Time 16.6 SECONDS (9.4-12.5)
== END ==
LOC: LAB 15:35
PROVIDERS: PCP Internal Medicine; Referring Provider Internal Medicine; Visit Provider Internal Medicine
DX: Z86.711 Personal history of pulmonary embolism (principal); Z79.01 Long term (current) use of anticoagulants; D68.59 Other primary thrombophilia
CPT/HCPCS: 36415; 85610

== ENCOUNTER 2025-01-02 11:03 | Emergency (ER) | payer MEDICARE, SELFPAY ==
[2025-01-02 11:24] VITALS: BP 190/87; PULSE 86; RESP 20; TEMP 36.1; O2SAT 95; BMI 22.4
--- NOTE | 2025-01-02 11:34 | PC.NURSE ---
ED physician came and assessed patient immediately and cleared c-collar at 11:32.
--- NOTE | 2025-01-02 11:37 | PC.NURSE ---
ED physician came and assessed patient immediately and cleared c-spine at 11:32 and informed this RN no c-collar needed at this time.
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
[2025-01-02] MEDS: MORPHINE 4 MG/ML INJ IV ×2 (11:39→13:19)
[2025-01-02] MEDS: ONDANSETRON 4 MG/2 ML INJ IV (11:39)
[2025-01-02 11:42] LABS: Add Manual Diff / Slide Review NO; Basophils Absolute Auto 0 /uL (0-100); Basophils Percent Auto 0.3 % (0-2); Eosinophils Absolute Auto 0 /uL (0-450); Eosinophils Percent Auto 0.1 % (2-4); Hematocrit 43.2 % (36-46); Hemoglobin 14.3 g/dL (12.0-16.0); Lymphocytes Absolute Auto 400 /uL (1100-4500); Lymphocytes Percent Auto 4.3 % (25-40); Mean Corpuscular HGB Conc 33.2 % (30-36); Mean Corpuscular Hemoglobin 31.9 PG (26-34); Mean Corpuscular Volume 96.2 fL (80-100); Monocytes Absolute Auto 200 /uL (0-900); Monocytes Percent Auto 1.8 % (3-14); Neutrophils Absolute Auto 9400 /uL (1500-7000); Neutrophils Percent Auto 93.5 % (50-75); Platelet Count 262 X10^3/uL (150-400); Red Blood Cell Count 4.49 X10^6/uL (4.0-5.2); Red Cell Distribution Width 14.1 % (11.6-14.8)
[2025-01-02 11:52] LABS: INR 1.5 (0.9-1.3); Prothrombin Time 16.3 SECONDS (9.4-12.5)
[2025-01-02 11:55] LABS: PTT Partial Thromboplastin Tim 37 SECONDS (25.1-36.5)
[2025-01-02 11:57] LABS: Alanine Aminotransferase 29 IU/L (<35); Albumin 4.5 g/dL (3.5-5.0); Albumin Globulin Ratio 1.3 (1.0-2.8); Alkaline Phosphatase 92 U/L (38-126); Aspartate Aminotransferase 31 IU/L (14-36); BUN Creatinine Ratio 22.1 (6-22); Bilirubin Total 0.7 mg/dL (0.2-1.3); Blood Urea Nitrogen 19 mg/dL (7-17); Calcium 9.6 mg/dL (8.4-10.2); Carbon Dioxide 22 mmol/L (22-32); Chloride 107 mmol/L (98-107); Estimated Glomerular Filt Rate > 60 mL/min (>60); Globulin 3.4 g/dL (1.7-4.1); Glucose 178 mg/dL (70-99); HEMOLYSIS < 15 (0-50); Potassium 4.1 mmol/L (3.4-5.1); Sodium 140 mmol/L (137-145); Total Protein 7.9 g/dL (6.3-8.2)
[2025-01-02 12:05] VITALS: PULSE 82; RESP 13; O2SAT 93
[2025-01-02 12:06] VITALS: BP 218/103; PULSE 82; RESP 15; O2SAT 93
[2025-01-02 12:30] VITALS: BP 160/86; PULSE 85; RESP 17; O2SAT 91
[2025-01-02 13:00] VITALS: BP 164/97; PULSE 76; RESP 16; O2SAT 94
[2025-01-02 13:30] VITALS: BP 162/90; PULSE 84; RESP 14
== END 2025-01-02 13:43 | disposition home or self-care (01) ==
PROVIDERS: Emergency Provider Emergency Medicine; PCP Internal Medicine
DX: S42.002A Fracture of unspecified part of left clavicle, initial encounter for closed fracture (principal); V86.99XA Unspecified occupant of other special all-terrain or other off-road motor vehicle injured in nontraffic accident, initial encounter; Z79.01 Long term (current) use of anticoagulants
CPT/HCPCS: 36415; 71275; 74177; 80053; 85025; 85610; 85730; 96374; 96375; 96376; 99284; J2270; J2405; Q9967

== ENCOUNTER → 2025-01-04 11:21 | Outpatient (CLI) | payer MEDICARE, SELFPAY ==
[2025-01-04 12:49] LABS: INR 2.6 (0.9-1.3); Prothrombin Time 28.8 SECONDS (9.4-12.5)
== END ==
PROVIDERS: PCP Internal Medicine; Referring Provider Internal Medicine; Visit Provider Internal Medicine
DX: D68.59 Other primary thrombophilia (principal); Z79.01 Long term (current) use of anticoagulants; Z86.711 Personal history of pulmonary embolism
CPT/HCPCS: 36415; 85610

== ENCOUNTER → 2025-01-08 12:03 | Outpatient (CLI) | payer MEDICARE, SELFPAY ==
[2025-01-08 12:57] LABS: INR 3.4 (0.9-1.3); Prothrombin Time 37.6 SECONDS (9.4-12.5)
== END ==
LOC: LAB 12:04
PROVIDERS: PCP Internal Medicine; Referring Provider Internal Medicine; Visit Provider Internal Medicine
DX: D68.59 Other primary thrombophilia (principal); Z79.01 Long term (current) use of anticoagulants; Z86.711 Personal history of pulmonary embolism
CPT/HCPCS: 36415; 85610

== ENCOUNTER → 2025-01-12 11:28 | Outpatient (CLI) | payer MEDICARE, SELFPAY ==
[2025-01-12 12:47] LABS: INR 4.1 (0.9-1.3); Prothrombin Time 45.1 SECONDS (9.4-12.5)
== END ==
PROVIDERS: PCP Internal Medicine; Referring Provider Internal Medicine; Visit Provider Internal Medicine
DX: D68.59 Other primary thrombophilia (principal); Z79.01 Long term (current) use of anticoagulants; Z86.711 Personal history of pulmonary embolism
CPT/HCPCS: 36415; 85610

== ENCOUNTER → 2025-01-18 11:52 | Outpatient (CLI) | payer MEDICARE, SELFPAY ==
[2025-01-18 13:20] LABS: INR 1.7 (0.9-1.3); Prothrombin Time 18.8 SECONDS (9.4-12.5)
== END ==
LOC: RAD 11:54 → LAB 14:00
PROVIDERS: PCP Internal Medicine; Referring Provider Internal Medicine; Visit Provider Internal Medicine
DX: D68.59 Other primary thrombophilia (principal); Z79.01 Long term (current) use of anticoagulants
CPT/HCPCS: 85610

== ENCOUNTER → 2025-01-23 10:32 | Outpatient (CLI) | payer MEDICARE, SELFPAY ==
[2025-01-23 11:32] LABS: INR 1.2 (0.9-1.3); Prothrombin Time 14.0 SECONDS (9.4-12.5)
== END ==
PROVIDERS: PCP Internal Medicine; Referring Provider Internal Medicine; Visit Provider Internal Medicine
DX: D68.59 Other primary thrombophilia (principal); Z79.01 Long term (current) use of anticoagulants; Z86.711 Personal history of pulmonary embolism
CPT/HCPCS: 36415; 85610

== ENCOUNTER → 2025-01-30 11:49 | Outpatient (CLI) | payer MEDICARE, SELFPAY ==
[2025-01-30 12:47] LABS: INR 1.6 (0.9-1.3); Prothrombin Time 17.8 SECONDS (9.4-12.5)
== END ==
PROVIDERS: PCP Internal Medicine; Referring Provider Internal Medicine; Visit Provider Internal Medicine
DX: D68.59 Other primary thrombophilia (principal); Z79.01 Long term (current) use of anticoagulants; Z86.711 Personal history of pulmonary embolism
CPT/HCPCS: 36415; 85610

== ENCOUNTER → 2025-02-06 11:46 | Outpatient (CLI) | payer MEDICARE, SELFPAY ==
[2025-02-06 13:55] LABS: INR 1.9 (0.9-1.3); Prothrombin Time 20.7 SECONDS (9.4-12.5)
== END ==
PROVIDERS: PCP Internal Medicine; Referring Provider Internal Medicine; Visit Provider Internal Medicine
DX: Z79.01 Long term (current) use of anticoagulants (principal)
CPT/HCPCS: 36415; 85610

== ENCOUNTER → 2025-02-13 10:55 | Outpatient (CLI) | payer MEDICARE, SELFPAY ==
[2025-02-13 11:31] LABS: INR 2.2 (0.9-1.3); Prothrombin Time 24.7 SECONDS (9.4-12.5)
== END ==
PROVIDERS: PCP Internal Medicine; Referring Provider Internal Medicine; Visit Provider Internal Medicine
DX: Z79.01 Long term (current) use of anticoagulants (principal)
CPT/HCPCS: 36415; 85610

== ENCOUNTER → 2025-02-21 11:32 | Outpatient (CLI) | payer MEDICARE, SELFPAY ==
[2025-02-21 12:15] LABS: INR 1.9 (0.9-1.3); Prothrombin Time 21.3 SECONDS (9.4-12.5)
== END ==
PROVIDERS: PCP Internal Medicine; Referring Provider Internal Medicine; Visit Provider Internal Medicine
DX: D68.59 Other primary thrombophilia (principal); Z79.01 Long term (current) use of anticoagulants; Z86.711 Personal history of pulmonary embolism; S42.012D Anterior displaced fracture of sternal end of left clavicle, subsequent encounter for fracture with routine healing; Z68.22 Body mass index [BMI] 22.0-22.9, adult
CPT/HCPCS: 36415; 73000; 85610; 99213

== ENCOUNTER → 2025-02-28 11:53 | Outpatient (CLI) | payer MEDICARE, SELFPAY ==
[2025-02-28 13:09] LABS: INR 2.4 (0.9-1.3); Prothrombin Time 26.3 SECONDS (9.4-12.5)
== END ==
PROVIDERS: PCP Internal Medicine; Referring Provider Internal Medicine; Visit Provider Internal Medicine
DX: D68.59 Other primary thrombophilia (principal); Z86.711 Personal history of pulmonary embolism; Z79.01 Long term (current) use of anticoagulants
CPT/HCPCS: 36415; 85610

== ENCOUNTER → 2025-04-04 11:13 | Outpatient (CLI) | payer MEDICARE, SELFPAY ==
[2025-04-04 12:22] LABS: INR 3.5 (0.9-1.3); Prothrombin Time 38.3 SECONDS (9.4-12.5)
== END ==
PROVIDERS: PCP Internal Medicine; Referring Provider Internal Medicine; Visit Provider Internal Medicine
DX: Z79.01 Long term (current) use of anticoagulants (principal); Z86.711 Personal history of pulmonary embolism; D68.59 Other primary thrombophilia
CPT/HCPCS: 36415; 85610

== ENCOUNTER → 2025-04-19 11:04 | Outpatient (CLI) | payer MEDICARE, SELFPAY ==
[2025-04-19 12:08] LABS: INR 2.5 (0.9-1.3); Prothrombin Time 27.6 SECONDS (9.4-12.5)
== END ==
PROVIDERS: PCP Internal Medicine; Referring Provider Internal Medicine; Visit Provider Internal Medicine
DX: D68.59 Other primary thrombophilia (principal); Z79.01 Long term (current) use of anticoagulants; Z86.711 Personal history of pulmonary embolism
CPT/HCPCS: 85610

== ENCOUNTER → 2025-05-03 11:15 | Outpatient (CLI) | payer MEDICARE, SELFPAY ==
[2025-05-03 12:50] LABS: INR 2.7 (0.9-1.3); Prothrombin Time 29.5 SECONDS (9.4-12.5)
== END ==
PROVIDERS: PCP Internal Medicine; Referring Provider Internal Medicine; Visit Provider Internal Medicine
DX: D68.59 Other primary thrombophilia (principal); Z79.01 Long term (current) use of anticoagulants; Z86.711 Personal history of pulmonary embolism
CPT/HCPCS: 36415; 85610

== ENCOUNTER → 2025-05-11 17:44 | Outpatient (CLI) | payer MEDICARE, SELFPAY | PROVIDERS: PCP Internal Medicine; Visit Provider Nurse Practitioner Family | DX: R30.0 Dysuria (principal) | CPT/HCPCS: 87077; 87086; 87186 ==

== ENCOUNTER → 2025-05-24 10:53 | Outpatient (CLI) | payer MEDICARE, SELFPAY ==
[2025-05-24 13:10] LABS: INR 2.9 (0.9-1.3); Prothrombin Time 32.0 SECONDS (9.4-12.5)
== END ==
PROVIDERS: PCP Internal Medicine; Referring Provider Internal Medicine; Visit Provider Internal Medicine
DX: D68.59 Other primary thrombophilia (principal); Z79.01 Long term (current) use of anticoagulants; Z86.711 Personal history of pulmonary embolism
CPT/HCPCS: 36415; 85610

== ENCOUNTER → 2025-06-01 10:37 | Outpatient (CLI) | payer MEDICARE, SELFPAY ==
[2025-06-01 12:05] LABS: Appearance Urine UA SL CLOUDY; Bilirubin Urine UA NEGATIVE (NEGATIVE); Color Urine UA YELLOW; Glucose Urine UA NEGATIVE (Negative); Ketones Urine UA NEGATIVE (NEGATIVE); Leukocyte Esterase Urine UA 2+ (NEGATIVE); Nitrite Urine UA NEGATIVE (Negative); Occult Blood Urine UA 2+ (Negative); Protein Urine UA NEGATIVE (Negative); Specific Gravity Urine UA <=1.005 (1.000-1.035); Urobilinogen Urine UA 0.2 E.U./dL (0.2)
[2025-06-01 12:06] LABS: pH Urine UA 6.5 (4.5-8.0)
[2025-06-01 12:10] LABS: Culture Indicated Urine Specimen Cultured
== END ==
LOC: LAB 10:38
PROVIDERS: PCP Internal Medicine; Visit Provider Nurse Practitioner Family
DX: N39.0 Urinary tract infection, site not specified (principal)
CPT/HCPCS: 81001; 87077; 87086

== ENCOUNTER → 2025-06-07 09:25 | Outpatient (CLI) | payer MEDICARE, SELFPAY ==
[2025-06-07 10:09] LABS: INR 2.9 (0.9-1.3); Prothrombin Time 31.8 SECONDS (9.4-12.5)
== END ==
PROVIDERS: PCP Internal Medicine; Referring Provider Internal Medicine; Visit Provider Internal Medicine
DX: Z79.01 Long term (current) use of anticoagulants (principal); Z86.711 Personal history of pulmonary embolism
CPT/HCPCS: 36415; 85610

== ENCOUNTER → 2025-06-21 11:31 | Outpatient (CLI) | payer MEDICARE, SELFPAY ==
[2025-06-21 12:20] LABS: INR 1.6 (0.9-1.3); Prothrombin Time 17.6 SECONDS (9.4-12.5)
== END ==
PROVIDERS: PCP Internal Medicine; Referring Provider Internal Medicine; Visit Provider Internal Medicine
DX: Z79.01 Long term (current) use of anticoagulants (principal); D68.59 Other primary thrombophilia; Z86.711 Personal history of pulmonary embolism
CPT/HCPCS: 36415; 85610

== ENCOUNTER → 2025-06-29 14:40 | Outpatient (CLI) | payer MEDICARE, SELFPAY ==
[2025-06-29 15:42] LABS: INR 1.5 (0.9-1.3); Prothrombin Time 16.4 SECONDS (9.4-12.5)
== END ==
PROVIDERS: PCP Internal Medicine; Referring Provider Internal Medicine; Visit Provider Internal Medicine
DX: D68.59 Other primary thrombophilia (principal); Z79.01 Long term (current) use of anticoagulants
CPT/HCPCS: 36415; 85610

== ENCOUNTER → 2025-07-06 11:34 | Outpatient (CLI) | payer MEDICARE, SELFPAY ==
[2025-07-06 12:19] LABS: INR 2.0 (0.9-1.3); Prothrombin Time 21.9 SECONDS (9.4-12.5)
== END ==
PROVIDERS: PCP Internal Medicine; Referring Provider Internal Medicine; Visit Provider Internal Medicine
DX: Z79.01 Long term (current) use of anticoagulants (principal)
CPT/HCPCS: 36415; 85610